=== PATIENT | male | born 1945 | race Caucasian/White ===

== ENCOUNTER → 2016-11-13 | Outpatient (CLI) | payer BC ==
[~2016-11-13] MED LIST: ASPEC81 PO; ASPI325T39 PO; CHLO4TAB PO; MAGN400T6 PO; METO50TA16 PO; MULT-190 PO; MULT-506 PO; RIVA1TAB4 PO
== END | disposition home or self-care (01) ==
LOC: C.PATHSPEC 17:34
PROVIDERS: ATTEND Internal Medicine
DX: D18.01 Hemangioma of skin and subcutaneous tissue (principal)

== ENCOUNTER → 2016-11-30 | Outpatient (CLI) | payer BC ==
[2016-11-30 11:13] LABS: ALT/SGPT 37 U/L (12-78); AST/SGOT 23 U/L (15-37); BLOOD UREA NITROGEN 22 mg/dl (7-18); BUN/CREATININE RATIO 18.4 (10-20); CALCIUM 9.1 mg/dl (8.5-10.1); CARBON DIOXIDE 31 mmol/L (21-32); CHLORIDE 106 mmol/L (98-107); CHOLESTEROL 199 mg/dl (0-200); GLUCOSE 97 mg/dl (70-99); POTASSIUM 4.3 mmol/L (3.5-5.1); SODIUM 144 mmol/L (136-145)
[2016-11-30 11:24] LABS: ALB/GLOB RATIO 0.9 (0.9-2); ALKALINE PHOSPHATASE 59 U/L (45-117); CHOLESTEROL/HDL RATIO 2.8; HDL CHOLESTEROL 71 mg/dl; PROSTATE SPECIFIC ANTIGEN 0.046 ng/ml (0.000-4.000); TRIGLYCERIDES 128 mg/dl (0-150); VERY LOW DENSITY LIPOPROT CALC 26 mg/dl
== END | disposition home or self-care (01) ==
LOC: C.LAB 10:20
PROVIDERS: ATTEND Internal Medicine
DX: Z00.01 Encounter for general adult medical examination with abnormal findings (principal); C61 Malignant neoplasm of prostate; E78.5 Hyperlipidemia, unspecified

== ENCOUNTER → 2016-12-25 | Outpatient (CLI) | payer BC ==
--- NOTE | 2016-12-25 11:31 | DIAGNOSTIC IMAGING REPORT ---
CT SCAN OF THE CHEST WITHOUT IV CONTRAST CLINICAL HISTORY: Lung cancer follow-up. COMPARISON STUDY: Chest CT scans dated 06/25/2016, 11/27/2015, and 05/21/2008 . PET/CT dated 12/05/2015. TECHNIQUE: CT scan of the thorax was performed from the thoracic inlet to the upper abdomen. Images are reviewed in the axial, sagittal, and coronal planes. IV contrast was not administered for this examination. CT DOSE: 295.89 mGycm FINDINGS: Thyroid: Imaged portions of the thyroid gland are normal in size and attenuation. Thoracic aorta: There is advanced atherosclerotic calcification of the thoracic aorta, which is normal in caliber and demonstrates standard 3-vessel arch anatomy. A left subclavian central venous infusion port is in place. Heart: The heart is normal in size and without pericardial effusion. There is diminished attenuation of the cardiac blood pool as compared to the myocardium suggesting anemia. The coronary arteries and aortic valve leaflets are densely calcified. The pulmonary trunk is normal in caliber. Lungs and pleural spaces: There are postoperative changes and volume loss consistent with a history of right upper lobe resection. Right apical scarring is observed. Emphysema is noted. There is no airspace consolidation typical for pneumonia or pleural effusion. No concerning pulmonary lesion is identified. Numerous calcified granulomas are observed. The trachea and central airways appear clear. Mediastinum: There are scattered subcentimeter mediastinal lymph nodes. These are not pathologically enlarged by size criteria. Brigid: Not well assessed without IV contrast. Axillae: There is no axillary lymphadenopathy. Upper abdomen: A 2.0 cm cyst is again seen in the upper pole the right kidney. The partially visualized kidneys demonstrate cortical atrophy. Cholecystectomy clips are observed. There is advanced atherosclerotic calcification of the imaged abdominal aorta. No adrenal lesion is identified. Diverticula are noted in the partially imaged left colon. Skeletal structures: The skeletal structures are osteopenic. Mild degenerative change and scoliosis are noted in the thoracic spine. No lytic or blastic bony lesions are seen. IMPRESSION: 1. There is no evidence of recurrent or metastatic disease in the thorax, and there has been no significant change from 06/25/2016. 2. Emphysema and postoperative changes consistent with a history of right upper lobectomy as above. 3. There is no airspace consolidation or pleural effusion. 4. Additional findings as above. Electronically signed by: Dustin Ward M.D. 12/25/2016 11:30 AM Dictated Date/Time: 12/25/2016 11:23 AM
== END | disposition home or self-care (01) ==
LOC: C.CTS 11:08
PROVIDERS: ATTEND Surgery
DX: C34.90 Malignant neoplasm of unspecified part of unspecified bronchus or lung (principal)

== ENCOUNTER 2017-01-01 00:06 | Emergency (ER) | payer BC ==
[~2017-01-01] VITALS: Ht 174 cm; Wt 68.3 kg
[~2017-01-01 00:06] MED LIST changes: -ASPI325T39 PO
[2017-01-01 00:09] VITALS: TEMP 36.3; Ht 174 cm; Wt 68.3 kg
[2017-01-01 00:20] VITALS: O2SAT 96
[2017-01-01] MEDS ORDERED: SODIUM CHLORIDE 0.9% 1000ML 1,000 ML IV STA (00:37)
--- NOTE | 2017-01-01 00:46 | EMERGENCY ROOM VISIT NOTE ---
History Report prepared by Siva: Juana Suarez Under the Supervision of: Dr. Mona Wooten M.D. First contact with patient: 00:15 Chief Complaint: RAPID HEART RATE Stated Complaint: RAPID HEART BEAT,SHAKINESS,ABD PAINS RECENTLY History of Present Illness The patient is a 71 year old male who presents to the Emergency Room with complaints of heart palpitations occurring about 45 minutes ago. The patient has a history of A-Fib occurring after right lung lobectomy. He denies any other episodes of A-Fib. He denies any changes in difficulty breathing in the past few weeks. Tonight, the patient did some of his exercises as normal without any issues. 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 His heart rate was in the 90s. He also started having some shakiness. Initially, he did not think that he had irregular rhythm but then he started having some heart palpitations with a sensation of his "heart skipping a beat". As per , the patient has been having intermittent lower abdominal pain for the past few weeks. He describes it as a combination of indigestion and increased gassiness. He has been taking TUMS with some relief. His PCP placed him on Prilosec which he has been intermittently weaning himself off of. He started taking Prilosec again about 3 days ago with relief. He has a history of multiple inguinal hernia repair. The patient also reports that he has been having increased lower extremity cramping pain. He currently denies any pain. He denies chest pain, nausea, vomiting, urinary symptoms, or any other complaints. Source of History: patient Onset: about 45 minutes ago Position: chest Symptom Intensity: No pain currently Quality: other (heart palpitations) Associated Symptoms: + abdominal pain, No chest pain, No nausea, No urinary symptoms, No vomiting Review of Systems See HPI for pertinent positives & negatives. A total of 10 systems reviewed and were otherwise negative. Past Medical & Surgical Medical Problems: (1) Gallbladder calculus (2) Lung cancer (3) Prostate cancer Surgical Problems: (1) H/O inguinal hernia repair Family History Patient reports no known family medical history. Social History Smoking Status: Former Smoker Marital Status: Occupation Status: retired Current/Historical Medications Scheduled Aspirin (Aspirin Ec), 162.5 MG PO HS Chlorpheniramine Maleate (Chlor-Trimeton), 4 MG PO HS Multivitamin (Multivitamin), 1 TAB PO QAM Ocuvite Preservision (Ocuvite Preservision), 1 TAB PO QAM Allergies Coded Allergies: Penicillins (Verified Allergy, Mild, RASH, 01/01/17) Physical Exam Vital Signs Date Time Temp Pulse Resp B/P Pulse Ox O2 Delivery O2 Flow Rate FiO2 01/01/17 04:03 86 16 137/84 96 01/01/17 03:30 96 18 142/80 95 Room Air 01/01/17 02:38 83 16 148/85 97 Room Air 01/01/17 02:04 82 18 130/89 100 Room Air 01/01/17 01:28 80 18 126/82 95 Room Air 01/01/17 00:26 84 18 162/92 96 Room Air 01/01/17 00:25 88 01/01/17 00:24 Room Air 01/01/17 00:20 85 18 169/92 96 Room Air 01/01/17 00:20 96 Room Air 01/01/17 00:09 36.3 90 20 164/100 96 Room Air Physical Exam Vital signs reviewed. General: Well-appearing, in no significant distress. HEENT: No scleral icterus, PERRLA, neck supple. Atraumatic. Cardiovascular: Regular rate and rhythm, no extra sounds. Pulmonary: Clear to auscultation bilaterally, normal work of breathing. Abdomen: Soft, nontender, nondistended, positive bowel sounds. Musculoskeletal: Atraumatic, no peripheral edema. Neurologic: Patient awake alert and oriented x 3, full strength in all 4 extremities. Cranial nerves 2 through 12 grossly intact. Skin: Warm, dry, no rash Medical Decision & Procedures ER Provider Diagnostic Interpretation: X-ray results as stated below per interpretation by me: CHEST X-RAY Mediastinal fullness with a perihilar fullness bilaterally, left sided port seen , no focal lung consolidation, no failure. CT results as stated below per my review and radiologist interpretation: CT CHEST WITH CONTRAST Comparison 12/25/2016 No evidence of filling defect to suggest pulmonary embolism. Thoracic aorta within limits. Coronary calcifications. No pericardial or pleural effusion. Status post cholecystectomy Partially imaged right renal cyst Pulmonary emphysema without focal consolidation Left port Radiologist: Carlitos Grubbs Laboratory Results 01/01/17 00:55 Red Blood Count 4.29, Mean Corpuscular Volume 90.2, Mean Corpuscular Hemoglobin 31.0, Mean Corpuscular Hemoglobin Concent 34.4, Mean Platelet Volume 9.0, Neutrophils (%) (Auto) 69.2, Lymphocytes (%) (Auto) 20.8, Monocytes (%) (Auto) 7.6, Eosinophils (%) (Auto) 2.2, Basophils (%) (Auto) 0.1, Neutrophils # (Auto) 6.70, Lymphocytes # (Auto) 2.01, Monocytes # (Auto) 0.74, Eosinophils # (Auto) 0.21, Basophils # (Auto) 0.01 01/01/17 00:55 Test 01/01/17 00:55 01/01/17 01:00 White Blood Count 9.68 K/uL (4.8-10.8) Red Blood Count 4.29 M/uL (4.7-6.1) Hemoglobin 13.3 g/dL (14.0-18.0) Hematocrit 38.7 % (42-52) Mean Corpuscular Volume 90.2 fL (80-100) Mean Corpuscular Hemoglobin 31.0 pg (25-34) Mean Corpuscular Hemoglobin Concent 34.4 g/dl (32-36) Platelet Count 177 K/uL (130-400) Mean Platelet Volume 9.0 fL (7.4-10.4) Neutrophils (%) (Auto) 69.2 % Lymphocytes (%) (Auto) 20.8 % Monocytes (%) (Auto) 7.6 % Eosinophils (%) (Auto) 2.2 % Basophils (%) (Auto) 0.1 % Neutrophils # (Auto) 6.70 K/uL (1.4-6.5) Lymphocytes # (Auto) 2.01 K/uL (1.2-3.4) Monocytes # (Auto) 0.74 K/uL (0.11-0.59) Eosinophils # (Auto) 0.21 K/uL (0-0.5) Basophils # (Auto) 0.01 K/uL (0-0.2) RDW Standard Deviation 44.1 fL (36.4-46.3) RDW Coefficient of Variation 13.4 % (11.5-14.5) Immature Granulocyte % (Auto) 0.1 % Immature Granulocyte # (Auto) 0.01 K/uL (0.00-0.02) Prothrombin Time 10.1 SECONDS (9.0-12.0) Prothromb Time International Ratio 0.9 (0.9-1.1) Activated Partial Thromboplast Time 26.6 SECONDS (21.0-31.0) Partial Thromboplastin Ratio 1.0 Anion Gap 7.0 mmol/L (3-11) Est Creatinine Clear Calc Drug Dose 49.6 ml/min Estimated GFR () 63.2 Estimated GFR (Non- 54.5 BUN/Creatinine Ratio 17.0 (10-20) Calcium Level 8.4 mg/dl (8.5-10.1) Magnesium Level 2.0 mg/dl (1.8-2.4) Total Bilirubin 0.2 mg/dl (0.2-1) Direct Bilirubin < 0.1 mg/dl (0-0.2) Aspartate Amino Transf (AST/SGOT) 16 U/L (15-37) Alanine Aminotransferase (ALT/SGPT) 30 U/L (12-78) Alkaline Phosphatase 59 U/L (45-117) Total Creatine Kinase 152 U/L (39-308) Creatine Kinase MB 3.1 ng/ml (0.5-3.6) Creatine Kinase MB Ratio 2.0 (0-3.0) Total Protein 6.8 gm/dl (6.4-8.2) Albumin 3.5 gm/dl (3.4-5.0) Bedside D-Dimer > 450 ng/mlFEU (0-450) Bedside Troponin I 0.000 ng/ml (0-0.045) Laboratory results per my review. Medications Administered Medications (Trade) Dose Ordered Sig/Johnny Route Start Time Stop Time Status Last Admin Dose Admin Sodium Chloride (Nss 1000ml) 1,000 ml @ 125 mls/hr Q8H STAT IV 01/01/17 00:37 01/01/17 04:14 DC 01/01/17 00:58 125 MLS/HR Heparin Sodium (Porcine) (Heparin 100 Unit/ml 5ml Flush) 5 ml STK-MED ONCE .ROUTE 01/01/17 03:43 01/01/17 03:44 DC 01/01/17 03:43 5 ML ECG Indication: palpitations Rate (beats per minute): 83 Rhythm: normal sinus Findings: no acute ischemic change, no ectopy ED Course 0015: Past medical records reviewed. The patient was evaluated in room A11B. A complete history and physical examination was performed. 0037: Sodium Chloride 1000 ml @ 125 mls/hr IV 0355: Upon reevaluation, the patient appeared to have improvement of his symptoms. I discussed findings with him. He verbalized agreement of the treatment plan. He was discharged home. Medical Decision Differential diagnosis: Etiologies such as premature contractions, electrolyte abnormality, cardiac dysrhythmia, thyroid dysfunction, pulmonary embolism, infection, gastrointestinal, as well as others were entertained. This patient was evaluated and appeared to be in no significant distress. IV access was obtained and laboratory work was drawn. The patient was placed on the corporate secretary and found to be in a normal sinus rhythm. EKG reveals no evidence of acute ischemia. Laboratory work is unrevealing. Patient's d-dimer is positive. CT scan of the chest was performed and is negative for pulmonary embolus. There are chronic changes noted as above. I suspect the patient either had a brief episode of atrial fibrillation or PVC /PAC. The patient was informed of the findings. He was advised to follow-up with his primary care physician this week. He will return to the ER for worsening of symptoms or any medical concerns. Impression Primary Impression: Heart palpitations Scribe Attestation The scribe's documentation has been prepared under my direction and personally reviewed by me in its entirety. I confirm that the note above accurately reflects all work, treatment, procedures, and medical decision making performed by me. Departure Information Dispostion Home / Self-Care Referrals Mushtaq Navarrete M.D. (PCP) Forms HOME CARE DOCUMENTATION FORM, IMPORTANT VISIT INFORMATION, WORK / SCHOOL INSTRUCTIONS Patient Instructions My [facility] Additional Instructions Diagnosis: Palpitations Please follow-up with your primary care physician this week for reevaluation. Continue medications as prescribed. Return to the emergency department for worsening of symptoms or any medical concerns.
[2017-01-01 01:10] LABS: BASO % 0.1 %; BASO ABS # 0.01 K/uL (0-0.2); COMPLETE YES; EOS % 2.2 %; HEMATOCRIT 38.7 % (42-52); IG% 0.1 %; LYMPH % 20.8 %; LYMPH ABS # 2.01 K/uL (1.2-3.4); MEAN CELL VOLUME 90.2 fL (80-100); MEAN CORPUSCULAR HGB CONC 34.4 g/dl (32-36); MONO % 7.6 %; NEUT % 69.2 %; PLATELET COUNT 177 K/uL (130-400); RED BLOOD COUNT 4.29 M/uL (4.7-6.1); WHITE BLOOD COUNT 9.68 K/uL (4.8-10.8)
[2017-01-01 01:18] LABS: INR 0.9 (0.9-1.1); PROTHROMBIN TIME (PATIENT) 10.1 SECONDS (9.0-12.0)
[2017-01-01] MEDS ORDERED: ASPI325T39 PO (01:29)
[2017-01-01 01:35] LABS: ALT/SGPT 30 U/L (12-78); AST/SGOT 16 U/L (15-37); BLOOD UREA NITROGEN 22 mg/dl (7-18); CALCIUM 8.4 mg/dl (8.5-10.1); CARBON DIOXIDE 29 mmol/L (21-32); CHLORIDE 107 mmol/L (98-107); GLUCOSE 89 mg/dl (70-99); POTASSIUM 3.9 mmol/L (3.5-5.1); SODIUM 143 mmol/L (136-145)
[2017-01-01 01:40] LABS: ALKALINE PHOSPHATASE 59 U/L (45-117)
[2017-01-01] MEDS ORDERED: OPTIRAY 320 IV PRN (02:15)
[2017-01-01 04:03] VITALS: BP 137/84; PULSE 86; O2SAT 96
--- NOTE | 2017-01-01 07:39 | DIAGNOSTIC IMAGING REPORT ---
CT ANGIOGRAM OF THE CHEST CLINICAL HISTORY: Dyspnea. Tachycardia. Lung cancer history. COMPARISON STUDY: Chest CT scans dated 12/25/2016 and 05/21/2008. TECHNIQUE: Following the IV administration of 74 cc of Optiray 320, CT angiogram of the chest was performed from the upper abdomen to the thoracic inlet utilizing the pulmonary embolus protocol. Images are reviewed in the axial, sagittal, and coronal planes. 3-D MIPS images are created and assessed. IV contrast was administered without complication. CT DOSE: 251.17 mGy.cm FINDINGS: Thyroid: Imaged portions of the thyroid gland are normal in size and attenuation. Thoracic aorta: There is atherosclerotic calcification of the thoracic aorta, which is normal in caliber and demonstrates standard 3-vessel arch anatomy. No dissection is seen. A left subclavian central venous infusion port is in place. Pulmonary vasculature: The pulmonary trunk is normal in caliber. There are no filling defects identified in main, lobar, or segmental pulmonary branches to suggest pulmonary embolus. Heart: The heart is normal in size and configuration, and without pericardial effusion. Coronary arteries are densely calcified. Lungs and pleural spaces: Again seen are postoperative changes and volume loss consistent with a history of right upper lobe resection. Right apical scarring is noted. Advanced emphysema is observed. There is no airspace consolidation typical for pneumonia or pleural effusion. No concerning pulmonary lesion is identified. Numerous calcified granulomas are observed. The trachea and central airways appear clear. Mediastinum: There are scattered subcentimeter mediastinal lymph nodes. These are not pathologically enlarged by size criteria. Brigid: Clear. Axillae: There is no axillary lymphadenopathy. Upper abdomen: Cholecystectomy clips are noted. A 2.0 cm cyst is again seen in the upper pole of the right kidney. There is advanced atherosclerotic calcification of the partially imaged abdominal aorta. Skeletal structures: The skeletal structures are osteopenic. Mild degenerative change and scoliosis are identified in the thoracic spine. No lytic or blastic bony lesions are seen. IMPRESSION: 1. There is no evidence of pulmonary embolus in the main, lobar, or segmental pulmonary arteries. 2. Advanced emphysema and postoperative change from right upper lobe resection. 3. There is no airspace consolidation or pleural effusion. 4. Additional findings as above. Electronically signed by: Dustin Ward M.D. 01/01/2017 7:37 AM Dictated Date/Time: 01/01/2017 7:31 AM
--- NOTE | 2017-01-01 07:57 | DIAGNOSTIC IMAGING REPORT ---
SINGLE VIEW CHEST CLINICAL HISTORY: Tachycardia. Lung cancer. FINDINGS: An AP, portable, upright chest radiograph is compared to study dated 02/01/2016 and correlated with chest CT dated 12/25/2016. The examination is degraded by portable technique and patient rotation. A left subclavian central venous infusion port is in place. The heart is top normal in size and there is atherosclerotic calcification of the thoracic aorta. Enlargement of the central pulmonary arteries suggests pulmonary artery hypertension. Emphysema and chronic interstitial thickening are somewhat a previous. Volume loss in the right upper lung is consistent with history of pulmonary resection. There is minimal left basilar atelectasis. No airspace consolidation or pleural effusion is identified. No pneumothorax is seen. The bony thorax is grossly intact. IMPRESSION: 1. No acute cardiopulmonary abnormality. 2. Emphysema and postoperative change from right upper lobe resection. Electronically signed by: Dustin Ward M.D. 01/01/2017 7:55 AM Dictated Date/Time: 01/01/2017 7:54 AM
== END 2017-01-01 04:04 | disposition home or self-care (01) ==
LOC: C.EDB 00:07 → C.EDA 04:04
DX: R00.2 Palpitations (principal); Z87.19 Personal history of other diseases of the digestive system; Z85.118 Personal history of other malignant neoplasm of bronchus and lung; Z85.46 Personal history of malignant neoplasm of prostate; Z98.890 Other specified postprocedural states; Z79.82 Long term (current) use of aspirin; Z79.899 Other long term (current) drug therapy; Z88.0 Allergy status to penicillin

== ENCOUNTER → 2017-06-23 | Outpatient (CLI) | payer BC ==
[~2017-06-23] MED LIST changes: -ASPEC81 PO; +ASPI325T39 PO; -MAGN400T6 PO; -METO50TA16 PO; -RIVA1TAB4 PO
--- NOTE | 2017-06-23 11:41 | DIAGNOSTIC IMAGING REPORT ---
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 COMPARISON STUDY: Chest CT January 01, 2017 and PET/CT December 05, 2015. CT DOSE: 411.90 mGycm TECHNIQUE: Axial images of the chest were obtained without IV contrast. Images were reviewed in the axial, sagittal, and coronal planes. IV contrast was not administered for this examination. A dose lowering technique was utilized adhering to the principles of ALARA. FINDINGS: No enlarged axillary, mediastinal or hilar lymph nodes are present. The size of the heart is normal. There is no pericardial effusion. Extensive coronary artery calcification is present. No pneumothorax or pleural effusion is present. Central airways are patent. There is moderate emphysema. There are stable postoperative findings consistent with a right upper lobectomy. No suspicious osseous lesions are shown within the bony thorax. Gallbladder is surgically absent. Visualized portions of the adrenal glands are normal. No upper abdominal abnormalities identified on this unenhanced exam. A left-sided Schmne-w-Yget is in place. IMPRESSION: 1. No evidence of recurrent malignancy within the chest status post right upper lobectomy. 2. Moderate emphysema. Electronically signed by: José Miguel Keller M.D. 06/23/2017 11:40 AM Dictated Date/Time: 06/23/2017 11:30 AM
== END | disposition home or self-care (01) ==
LOC: C.CTS 11:13
PROVIDERS: ATTEND Internal Medicine Hematology
DX: C34.11 Malignant neoplasm of upper lobe, right bronchus or lung (principal)

== ENCOUNTER → 2017-07-12 | Outpatient (CLI) | payer BC | END | disposition home or self-care (01) | LOC: C.LABSPEC 16:00 | PROVIDERS: ATTEND Internal Medicine | DX: Z12.11 Encounter for screening for malignant neoplasm of colon (principal) ==

== ENCOUNTER → 2017-12-09 | Outpatient (CLI) | payer BC | END | disposition home or self-care (01) | LOC: C.LABSPEC 17:36 | PROVIDERS: ATTEND Internal Medicine | DX: L02.01 Cutaneous abscess of face (principal) ==

== ENCOUNTER → 2017-12-22 | Outpatient (CLI) | payer BC ==
--- NOTE | 2017-12-22 14:15 | DIAGNOSTIC IMAGING REPORT ---
CT OF THE CHEST WITHOUT IV CONTRAST CLINICAL HISTORY: Malignant neoplasm of right upper lobe. COMPARISON STUDY: Chest CT June 23, 2017 and PET/CT December 05, 2015. CT DOSE: 251.93 mGycm TECHNIQUE: Axial images of the chest were obtained without IV contrast. Images were reviewed in the axial, sagittal, and coronal planes. IV contrast was not administered for this examination. A dose lowering technique was utilized adhering to the principles of ALARA. FINDINGS: A left subclavian Rungtd-s-Wkxw is in place. No enlarged axillary, mediastinal or hilar lymph nodes are present. The size the heart is normal. There is extensive coronary artery calcification. There is no pericardial effusion. The patient is status post right upper lobectomy. The postoperative appearance is unchanged. There are multiple calcified pulmonary nodules which are unchanged. There are no suspicious pulmonary nodules. There is no consolidation to suggest pneumonia. Moderate emphysema is noted. No suspicious osseous lesions are present. Pneumobilia is noted within visualized portions of the upper abdomen which is unchanged. A suspected right renal cyst is partially imaged on this exam. IMPRESSION: 1. No evidence for recurrent malignancy status post right upper lobectomy. 2. Moderate emphysema. 3. Severe coronary artery disease. Electronically signed by: José Miguel Keller M.D. 12/22/2017 2:14 PM Dictated Date/Time: 12/22/2017 2:05 PM
== END | disposition home or self-care (01) ==
LOC: C.CTS 13:48
PROVIDERS: ATTEND Internal Medicine Hematology
DX: C34.11 Malignant neoplasm of upper lobe, right bronchus or lung (principal); J43.9 Emphysema, unspecified; Z90.2 Acquired absence of lung [part of]; I25.10 Atherosclerotic heart disease of native coronary artery without angina pectoris

== ENCOUNTER → 2018-02-02 | Outpatient (CLI) | payer BC ==
--- NOTE | 2018-02-02 15:17 | DIAGNOSTIC IMAGING REPORT ---
VIDEO SWALLOW STUDY CLINICAL HISTORY: Dysphagia. COMPARISON STUDY: No priors. Fluoroscopy time: 2.4 minutes. FINDINGS: Fluoroscopic guidance is provided to the department of speech pathology in performing a video swallow study. The patient consumed barium-impregnated cracker with paste, pudding, nectar thick liquid, and thin barium where the swallowing mechanism was observed in real-time. No penetration or aspiration was seen with any of the sampled textures. The patient swallowed a barium tablet with no difficulty. Mild vallecular retention was noted on the more solid textures. IMPRESSION: 1. No penetration or aspiration was seen with any of the sampled textures. 2. See dedicated speech pathology report for detailed findings and recommendations. Dictated: 02/02/2018 2:53 PM Transcribed: 02/02/2018 3:17 PM [email or web address] Electronically signed by: Dustin Ward M.D. 02/03/2018 4:08 PM Dictated Date/Time: 02/02/2018 2:53 PM
--- NOTE | 2018-02-03 10:23 | SWALLOWING EVALUATION ---
HISTORY: This 72 year old man was referred for a video swallow study at [facility] in order to rule out aspiration and identify the safest consistencies for optimal oral intake. The patient is reporting pill dysphagia and food getting stuck in his throat at times. He denies any coughing or choking with food or liquid. PMH is significant for right lung cancer s/p right upper lobectomy, s/p chemotherapy, A-fib, and cholecystitis. Current diet is regular. PROCEDURE: The patient was seen in the Radiology Department of [facility] for the VFSS. Cursory examination of the oral cavity revealed the patient to have an upper partial that fits well and lower dentition in good condition. Movement of the articulators was wnl. The patient was seated upright on a stool and was viewed in both the Anterior-Posterior (A-P) and Lateral planes. Volitional phonation exercises completed in the A-P plane revealed bilateral vocal fold movement. Vocal intensity was wnl. Patient reports episodes of a raspy vocal quality. In the lateral plane, the patient was given the following boluses: 1 tsp. thin liquid barium x 2, single swallow thin liquid barium self-presented from a cup, sequential swallows of thin liquid barium self-presented from a straw, 1 tsp. nectar-thick liquid barium, single swallow nectar-thick liquid barium self-presented from a cup, 1 tsp. barium pudding, and 1 club cracker coated in barium pudding. The patient was then repositioned into the A-P plane and given the following boluses: 1 tsp. nectar thick barium, 1 tsp. barium pudding, and 1 barium tablet. The patient tended to lean back and to the right for the study and required frequent repositioning. RESULTS: Oral Stage: Lip closure was adequate. The patient was able to maintain a cohesive liquid bolus in the oral cavity during the liquid bolus hold task. Mastication was timely and efficient. Lingual motion for bolus transport was slow. There was retention lining the tongue and palate after the initial swallow. The initiation of the pharyngeal swallow was delayed occurred when the bolus head reached the pyriforms. Pharyngeal Stage: Soft palate elevation was complete. Laryngeal elevation revealed complete superior movement of the thyroid cartilage and complete approximation of the arytenoids to the epiglottic base. Anterior hyoid excursion was partially reduced and epiglottic deflection was complete. Laryngeal vestibular closure was complete. The pharyngeal stripping wave was present and complete. Pharyngeal contraction was complete. There was partial distention and duration of the opening to the pharyngoesophageal segment (PES). Tongue base retraction was partially reduced with a trace column of contrast located between the tongue base and pharyngeal wall during the swallow. There was retention located in the valleculae and pyriforms after the swallow. There was no evidence of laryngeal penetration or aspiration during this study. A majority of the vallecular and pyriform retention cleared with a second "dry" swallow or use of a liquid wash. No difficulty swallowing a barium tablet. Esophageal stage: There was complete esophageal clearance. Noted cervical osteophytes located in the area of the upper esophagus that only mildly impacted bolus flow through the PES. SUMMARY/RECOMMENDATIONS: This patient presents with mild hebert-pharyngeal dysphagia. The following is recommended: 1. Regular diet and thin liquids. 2. Aspiration precautions. Straws OK. Fully upright for meals and for 30 [address] medications in a carrier such as applesauce or pudding to assist with swallowing. Follow this with a liquid wash. A summary of the results and recommendations was discussed with the patient immediately following the study with verbal understanding. Thank you for referral of this patient. Please contact me at if any additional information is needed.
== END | disposition home or self-care (01) ==
LOC: C.RAD 13:26
PROVIDERS: ATTEND Surgery
DX: R13.10 Dysphagia, unspecified (principal)

== ENCOUNTER 2022-07-30 15:28 | Observation (INO) ==
[2022-07-30 16:07] LABS: Hematocrit (blood only) 42.2 % (40.1-51.0); Hemoglobin 14.3 g/dl (14.0-18.0); Mean Corpuscular Hemoglobin 30.9 pg (25.0-34.0); Mean Corpuscular Hgb Conc 33.9 g/dL (32.0-36.0); Mean Corpuscular Volume 91.1 fL (80.0-100.0); Mean Platelet Volume 9.4 fL (9.4-12.4); Platelet Count 202 K/uL (130-400); RDW Coefficient of Variation 12.6 % (11.5-14.5); RDW Standard Deviation 41.7 fL (36.4-46.3); Red Blood Count 4.63 M/uL (4.63-6.08); White Blood Count 7.99 K/ul (4.8-10.8)
[2022-07-30 16:23] LABS: Partial Thromboplastin Time 26.2 Seconds (21.0-31.0); Prothrombin Time 10.9 Seconds (9.0-12.0)
[2022-07-30 16:30] LABS: Albumin Globulin Ratio 1.3 (0.9-2); Albumin Level 3.9 gm/dl (3.4-5.0); BUN Creatinine Ratio 20.5 (10-20); Bilirubin,Total 0.5 mg/dl (0.2-1.0); Calcium 9.4 mg/dl (8.5-10.1); Creatinine Clr Calc Pharmacy 43.6 ml/min; Est GFR (African American) 59.5 ml/min; Est GFR (Non-African American) 51.3 ml/min; Magnesium 1.8 mg/dl (1.7-2.4); Potassium 4.8 mmol/L (3.5-5.1); Total Protein 6.9 gm/dl (6.0-8.3)
[2022-07-30 16:33] LABS: Troponin I High Sensitivity 9.2 pg/ml (0-20)
--- NOTE | 2022-07-30 17:01 | Electrocardiogram Report ---
Test Reason : Blood Pressure : / mmHG Vent. Rate : 084 BPM Atrial Rate : 084 BPM P-R Int : 152 ms QRS Dur : 122 ms QT Int : 382 ms P-R-T Axes : 062 -02 049 degrees QTc Int : 451 ms Poor data quality, interpretation may be adversely affected Normal sinus rhythm Right bundle branch block Abnormal ECG When compared with ECG of 01-JAN-2017 00:20, Right bundle branch block is now Present Confirmed by Cory Styles ([id number]) on 07/30/2022 5:01:33 PM Referred By: REFERRED SELF Confirmed By:Cory Styles
[2022-07-30] MEDS ORDERED: OPTIRAY 320 500ml IV ONE (17:04)
--- NOTE | 2022-07-30 17:20 | CT Scan Report ---
CT angio head w con, CT angio neck with con CLINICAL HISTORY: Stroke Like Symptoms TECHNIQUE: CT angiography of the head and neck was performed following intravenous administration of iodinated contrast. Coronal and sagittal MIPS were obtained from the axial data set and were submitte d for review. Automated dose lowering techniques and/or adjustment according to patient size were ut ilized for this examination. All measurements were calculated based on NASCET criteria. CT DOSE: 631.23 mGy.cm Comparison: None available at the time of this dictation. FINDINGS: Biapical emphysema is seen. CTA Neck: A 3 vessel aortic arch is shown. Atherosclerotic plaque is present in the aortic arch and at the origin of the great vessels. The common carotid, external carotid, cervical segments of the i nternal carotid arteries, and the cervical segments of the vertebral arteries are patent without hemo dynamically significant stenosis. The left vertebral artery is dominant. CTA Head: The anterior and posterior cerebral circulations are patent. No hemodynamically significan t stenosis, aneurysm, dissection, or arteriovenous malformation is shown. IMPRESSION: 1. No occlusion, hemodynamically significant stenosis, or dissection in the major cervical arteries. 2. No occlusion, hemodynamically significant stenosis, aneurysm, dissection, or arteriovenous malfor mation in the major intracranial arteries. Assessment of stenosis of the internal carotid arteries is based on NASCET criteria. ACT 112: Negative or not required by law. Electronically signed by: Boone Metcalf M.D. 07/30/2022 5:18 PM
--- NOTE | 2022-07-30 17:48 | Emergency Department Note ---
History of Present Illness General Chief complaint: Stroke/CVA Symptoms Stated complaint: GARBLED SPEECH Time Seen by Provider: 07/30/22 15:51 History of Present Illness 77-year-old male presents to the ED with a chief complaint of TIA symptoms. The patient had an episode at around 240 2:55 PM where he had garbled speech for about 2 minutes. He states that he was able to read and comprehend but when he tried to speak, nonsense him out. He states this was rather frustrating but fortunately resolved. The patient also states that he has some prism like visual changes during the same time. He does have history of angioplasty of his legs with stents in 2019. 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 He currently only takes atorvastatin. He had been on lisinopril previously but this has been removed because his blood pressures were okay. He denies any other complaints. He did not have any additional associated focal deficits. Remote history of A. fib after his surgery in 2015. Home Medications Medication Instructions Recorded Confirmed Type aspirin 325 mg tablet,delayed 162.5 mg PO HS 08/17/18 02/10/20 History release chlorpheniramine maleate 4 mg 4 mg PO HS 08/17/18 02/10/20 History tablet multivitamin 1 tab PO DAILY 08/17/18 02/10/20 History omeprazole 20 mg tablet,delayed 20 mg PO UD PRN Acid Reflux 08/17/18 02/09/20 History release vit C 150 mg-vit E 30 unit-lutein 1 cap PO QAM 08/17/18 02/10/20 History 5 [id number]-[id number]-mirql 3 150 mg capsule (Ocuvite) atorvastatin 20 mg tablet 20 mg PO DAILY 02/09/20 02/10/20 History lisinopril 10 mg tablet 10 mg PO BID 02/09/20 02/10/20 History clopidogrel 75 mg tablet (Plavix) 75 mg PO DAILY #30 tabs 02/10/20 Rx Allergies Allergy/AdvReac Type Severity Reaction Status Date / Time Penicillins Allergy Intermediate RASH Verified 02/10/20 05:43 Past Med/Surg History Medical History (Updated 07/30/22 @ 17:48 by Maurilio Irene DO) Acid reflux High blood pressure ? NOT DX/HIGH READING AT ED VISIT ([facility]) FOR NOSE BLEED History of atrial fibrillation 2ND NIGHT POST OP,LUNG SURGERY/AFIB X1 EPISODE (NONE KNOWN SINCE) History of brachytherapy History of prostate cancer History of TMJ syndrome OCC CLICK OR POP NOW/NEVER LOCKED Lung cancer 2016/SURGERY/CHEMO Nasal bleeding AUG 17 LAST EPISODE/REASON FOR UPCOMING PROCEDURE Surgical History History of bilateral cataract extraction History of endoscopy History of hernia repair History of hernia surgery LAP X2 History of intestinal surgery HX BOWEL PERFORATION History of laparoscopic cholecystectomy History of lobectomy of lung UPPER RIGHT History of vitrectomy R Family History Other FHx: heart disease Family history of diabetes mellitus Social History Smoking Status: Former smoker Second Hand Exposure: No; Hx Alcohol Use: No Hx Substance Use: No Preferred Language: Liberian Communication Ability: Effective Transfer Knitter Required: No Beliefs That Will Affect Care: None Current Living Situation: Spouse Feels Safe at Home: Yes Assistive Devices: Denture - Upper and Glasses Review of Systems A total of 10 systems reviewed and were otherwise negative Physical Exam Vital Signs Vital Signs - 24 hr 07/30/22 15:35 07/30/22 16:13 07/30/22 17:02 Temperature 36.4 C L Temperature Source Temporal Artery Scan Pulse Rate 90 Pulse Rate [Right Finger] 83 72 Respiratory Rate 18 20 16 Respiratory Depth Normal Blood Pressure 193/105 H Blood Pressure [Right Arm] 189/108 H 169/91 H Blood Pressure Mean 134 Blood Pressure Mean [Right Arm] 135 117 Pulse Oximetry 99 96 95 Oxygen Delivery Method Room Air Sepsis Recent Fever Within 48 Hours No Sepsis New/Unexplained Change in Mental Status No Sepsis Action Taken by Nursing No Action Required 07/30/22 17:39 Temperature Temperature Source Pulse Rate Pulse Rate [Right Finger] Respiratory Rate Respiratory Depth Blood Pressure Blood Pressure [Right Arm] 184/99 H Blood Pressure Mean Blood Pressure Mean [Right Arm] 127 Pulse Oximetry Oxygen Delivery Method Sepsis Recent Fever Within 48 Hours Sepsis New/Unexplained Change in Mental Status Sepsis Action Taken by Nursing CONSTITUTIONAL/VITAL SIGNS: Reviewed / noted above. GENERAL: Non-toxic in appearance. INTEGUMENTARY: Warm, dry, and [place]. HEAD: Normocephalic. EYES: without scleral icterus or trauma. ENT/OROPHARYNX: clear and moist. LYMPHADENOPATHY/NECK: Is supple without lymphadenopathy or meningismus. RESPIRATORY: Clear to auscultation bilaterally. No increased work of breathing. CARDIOVASCULAR: Regular rate and rhythm. GI/ABDOMEN: Soft and nontender. No organomegaly or pulsatile mass. EXTREMITIES: Warm and well perfused. BACK: No CVA tenderness. NEUROLOGICAL: Intact without focal deficits. Cranial nerves II through XII are intact. Awake alert and oriented. Speaks fluently. No pronator drift. Cerebellar testing is normal. Strength in the extremities is all normal PSYCHIATRIC: normal affect. MUSCULOSKELETAL: Normally developed with good muscle tone. TRIAGE NURSING DOCUMENTATION REVIEWED. Course Administered Medications Discontinued Medications Ioversol (Optiray 320 500ml) 103 ml IV ONCE ONE Stop: 07/30/22 17:05 Last Admin: 07/30/22 17:04 Dose: 103 ml Documented By: MAURA Medical Decision Making Differential Diagnosis Differential includes acute coronary syndrome, myocardial infarction, CVA, TIA, anemia, infection, pneumonia, UTI, pyelonephritis, poor nutrition, dehydration, electrolyte disturbance,hypoglycemia. Medical Records Attestation: I reviewed the patient's medical records. Home Medications Current Medication List: was personally reviewed by me Laboratory Data Attestation: I reviewed the patient's lab results. Result diagrams: 07/30/22 15:50 07/30/22 15:50 Lab Results 07/30/22 07/30/22 07/30/22 Range/Units 15:50 15:50 15:50 WBC 7.99 (4.8-10.8) K/ul RBC 4.63 (4.63-6.08) M/uL Hgb 14.3 (14.0-18.0) g/dl Hct 42.2 (40.1-51.0) % MCV 91.1 (80.0-100.0) fL MCH 30.9 (25.0-34.0) pg MCHC 33.9 (32.0-36.0) g/dL RDW Std Deviation 41.7 (36.4-46.3) fL RDW Coeff of Erika 12.6 (11.5-14.5) % Plt Count 202 (130-400) K/uL MPV 9.4 (9.4-12.4) fL PT 10.9 (9.0-12.0) Seconds INR 1.0 (0.9-1.1) APTT 26.2 (21.0-31.0) Seconds PTT Ratio 1.0 Sodium 140 (136-145) mmol/L Potassium 4.8 (3.5-5.1) mmol/L Chloride 106 (98-107) mmol/L Carbon Dioxide 30 (21-32) mmol/L Anion Gap 4 (3-11) BUN 27 H (6-23) mg/dl Creatinine 1.32 (0.6-1.4) mg/dl Est Cr Clr Drug Dosing 43.6 ml/min Est GFR ( Amer) 59.5 ml/min Est GFR (Non-Af Amer) 51.3 ml/min BUN/Creatinine Ratio 20.5 H (10-20) Glucose 163 H (70-99(Fasting)) mg/dl Calcium 9.4 (8.5-10.1) mg/dl Magnesium 1.8 (1.7-2.4) mg/dl Total Bilirubin 0.5 (0.2-1.0) mg/dl AST 23 (13-39) U/L ALT 25 (7-52) U/L Alkaline Phosphatase 71 (34-104) U/L Troponin I High Sens 9.2 (0-20) pg/ml Total Protein 6.9 (6.0-8.3) gm/dl Albumin 3.9 (3.4-5.0) gm/dl Globulin 3.0 (2.5-4.0) gm/dl Albumin/Globulin Ratio 1.3 (0.9-2) Imaging Data Radiologist's Impression: Head CTA 07/30/22 15:52 CT angio head w con, CT angio neck with con CLINICAL HISTORY: Stroke Like Symptoms TECHNIQUE: CT angiography of the head and neck was performed following intravenous administration of iodinated contrast. Coronal and sagittal MIPS were obtained from the axial data set and were submitted for review. Automated dose lowering techniques and/or adjustment according to patient size were utilized for this examination. All measurements were calculated based on NASCET criteria. CT DOSE: 631.23 mGy.cm Comparison: None available at the time of this dictation. FINDINGS: Biapical emphysema is seen. CTA Neck: A 3 vessel aortic arch is shown. Atherosclerotic plaque is present in the aortic arch and at the origin of the great vessels. The common carotid, external carotid, cervical segments of the internal carotid arteries, and the cervical segments of the vertebral arteries are patent without hemodynamically significant stenosis. The left vertebral artery is dominant. CTA Head: The anterior and posterior cerebral circulations are patent. No hemodynamically significant stenosis, aneurysm, dissection, or arteriovenous malformation is shown. IMPRESSION: 1. No occlusion, hemodynamically significant stenosis, or dissection in the major cervical arteries. 2. No occlusion, hemodynamically significant stenosis, aneurysm, dissection, or arteriovenous malformation in the major intracranial arteries. Assessment of stenosis of the internal carotid arteries is based on NASCET criteria. ACT 112: Negative or not required by law. Electronically signed by: Boone Metcalf M.D. 07/30/2022 5:18 PM Neck CTA 07/30/22 15:52 CT angio head w con, CT angio neck with con CLINICAL HISTORY: Stroke Like Symptoms TECHNIQUE: CT angiography of the head and neck was performed following intravenous administration of iodinated contrast. Coronal and sagittal MIPS were obtained from the axial data set and were submitted for review. Automated dose lowering techniques and/or adjustment according to patient size were utilized for this examination. All measurements were calculated based on NASCET criteria. CT DOSE: 631.23 mGy.cm Comparison: None available at the time of this dictation. FINDINGS: Biapical emphysema is seen. CTA Neck: A 3 vessel aortic arch is shown. Atherosclerotic plaque is present in the aortic arch and at the origin of the great vessels. The common carotid, external carotid, cervical segments of the internal carotid arteries, and the cervical segments of the vertebral arteries are patent without hemodynamically significant stenosis. The left vertebral artery is dominant. CTA Head: The anterior and posterior cerebral circulations are patent. No hemodynamically significant stenosis, aneurysm, dissection, or arteriovenous malformation is shown. IMPRESSION: 1. No occlusion, hemodynamically significant stenosis, or dissection in the major cervical arteries. 2. No occlusion, hemodynamically significant stenosis, aneurysm, dissection, or arteriovenous malformation in the major intracranial arteries. Assessment of stenosis of the internal carotid arteries is based on NASCET criteria. ACT 112: Negative or not required by law. Electronically signed by: Boone Metcalf M.D. 07/30/2022 5:18 PM ECG Data Attestation: I personally reviewed and interpreted this ECG as follows: Additional Comments: Twelve-lead EKG: Per my interpretation shows a normal sinus rhythm at a rate of 84. Right bundle branch block. No ST elevation. No PVCs. Normal QTC. MDM Narrative 77-year-old male presents with symptoms consistent with a TIA. It affected the ability to speak but not comprehend. This lasted for about 2 minutes then resolved. He has been fine since. It occurred around 3 PM today. Exam was unremarkable. Vital signs reveal hypertension. CT scans of the head and ang iograms of the head and neck did not show any concerning abnormalities. Blood work was unremarkable. EKG shows a sinus rhythm. Chest x-ray was negative for acute disease. The patient was told the results of the test. He will be seen by the hospitalist for further evaluation and care. Impression & Plan Transient cerebral ischemia Discharge Plan Visit Data Chief Complaint: Stroke/CVA Symptoms Stated Complaint: GARBLED SPEECH ED Provider: Maurilio Irene Discharge Problem: Transient cerebral ischemia Patient Disposition: Being Evaluated by Hospitalist Forms Stand Alone Forms: [facility] Prescriptions Prescriptions: No Action aspirin 325 mg Tablet,Delayed Release (Dr/Ec) 162.5 mg PO HS chlorpheniramine maleate 4 mg Tablet 4 mg PO HS multivitamin Tablet 1 tab PO DAILY omeprazole 20 mg Tablet,Delayed Release (Dr/Ec) 20 mg PO UD PRN (Reason: Acid Reflux) Ocuvite [id number]-mg Capsule 1 cap PO QAM atorvastatin 20 mg Tablet 20 mg PO DAILY lisinopril 10 mg Tablet 10 mg PO BID clopidogrel [Plavix] 75 mg tablet 75 mg PO DAILY Qty: 30 2RF Referrals Referrals: Janet Klein MD [Primary Care Provider] -
--- NOTE | 2022-07-30 18:44 | History & Physical Report ---
Date of Service July 30, 2022 Assessment & Plan (1) TIA (transient ischemic attack): Plan: New TIA symptoms. Initial imaging in the ER includes CTA head and neck and CT heaad without contrast. This is not showing acute intracranial pathology consistent with stroke. MRI wo contrast ordered overnight. He is on ASA 81mg and Lipitor 20mg daily for h/o PAD with iliac stents. Will add Plavix for additional antiplatelet therapy in setting of possible CVA. Evaluation including PT/OT/speech assessment. Monitor on telemetry for occult arrhythmia. Echo with bubble study. Appreciate neurology definitive recs. (2) HTN (hypertension): Plan: Currently hypertensive [facility] BP at goal <220/110 to allow for permissive hypertension for the next 48 hours in setting of stroke like symptoms. He was recently taken off lisinopril by his PCP on 06/03/22. Cont to monitor. Recheck of his BP in the room is 206/98 on the left and 215/100 on the right. Start norvasc and continue rechecks overnight. It is likely his elevated BP contributed to symptoms today, and he needs some control of this going home. (3) CKD (chronic kidney disease), stage III: Plan: chronic, at baseline, likely somewhat improved today (1.3) with recent discontinuation of VELAM inhibitor. (4) PAD (peripheral artery disease): Plan: chronic, stable. Cont medical management with ASA 81 and statin therapy. (5) DVT prophylaxis: Plan: Lovenox Full Code Dispo-to PCU, and possibly to home pending above evaluations. Helen Jarvis DO [facility] Hospitalist History of Present Illness Chief Complaint: CVA symptoms Primary Care Provider: Janet Klein MD 77 yo M with history of having lunch and acute garbled speech. Went to [employer] today and had vegetable soup and uruguayan muffin. [place] fine but got up to leave with his and tried to speak but had trouble speaking. Symptoms lasted about 15-20 minutes. [place] a "prismatic look" in his vision coming from the left side and possibly affecting both eyes, went away in a few seconds. He was able to get up and get his coat on and decided together with his to drive to the hospital. As they were driving over, he was able to start speaking better and the vocabulary started coming back. +word finding difficulty was the main issue. No current visual symptoms No headache today Has reported some sinus symptoms recently including nasal congestion/post nasal drip-these are chronic takes antihistamine every night and occasional afrin use No stroke symptoms in the past No chest pain no SOB No infections reported recently No diarrhea, nausea +constipation and took miralax yesterday. Allergies Allergy/AdvReac Type Severity Reaction Status Date / Time Penicillins Allergy Intermediate RASH Verified 07/30/22 18:18 Home Medications Medication Instructions Recorded Confirmed Type chlorpheniramine maleate 4 mg 2 mg PO HS 08/17/18 07/30/22 History tablet multivitamin 1 tab PO DAILY 08/17/18 07/30/22 History atorvastatin 20 mg tablet 20 mg PO DAILY 02/09/20 07/30/22 History aspirin 81 mg tablet,delayed 81 mg PO DAILY 07/30/22 07/30/22 History release calcium carbonate 200 mg calcium 400 mg PO DIRECTED PRN 07/30/22 07/30/22 History (500 mg) chewable tablet (Tums) HEARTBURN/INDIGESTION [id number] 250 mg-dha 90 1 cap PO QAM 07/30/22 07/30/22 History mg-epa 160 [id number]-[id number] capsule (Ocuvite Adult 50 Plus) Past Med/Surg History Medical History (Updated 07/30/22 @ 18:43 by Helen Jarvis DO) Acid reflux Aortoiliac occlusive disease CKD (chronic kidney disease), stage III High blood pressure ? NOT DX/HIGH READING AT ED VISIT ([facility]) FOR NOSE BLEED History of atrial fibrillation 2ND NIGHT POST OP,LUNG SURGERY/AFIB X1 EPISODE (NONE KNOWN SINCE) History of brachytherapy History of prostate cancer History of TMJ syndrome OCC CLICK OR POP NOW/NEVER LOCKED HTN (hypertension) Lumbar foraminal stenosis Lung cancer 2015/SURGERY/CHEMO Nasal bleeding AUG 17 LAST EPISODE/REASON FOR UPCOMING PROCEDURE PAD (peripheral artery disease) with bilateral iliac stents Surgical History History of bilateral cataract extraction History of endoscopy History of hernia repair History of hernia surgery LAP X2 History of intestinal surgery HX BOWEL PERFORATION History of laparoscopic cholecystectomy History of lobectomy of lung UPPER RIGHT History of vitrectomy R Family History Other FHx: heart disease Family history of diabetes mellitus Social History (Updated 07/30/22 @ 20:24 by Helen Jarvis DO) Smoking Status: Former smoker Second Hand Exposure: No; Hx Alcohol Use: No Hx Substance Use: No Preferred Language: Occitan Communication Ability: Effective Senior Research Scientist Required: No Beliefs That Will Affect Care: None marital status: Current Living Situation: Spouse Feels Safe at Home: Yes Safety Concerns: Feels Safe At This Time Assistive Devices: Denture - Upper and Glasses Review of Systems Review of Systems: All systems were reviewed and negative except as indicated in HPI above. Physical Exam Physical Exam: CONSTITUTIONAL: WNWD, vitals as above, generally well- appearing, slightly tremulous EYES: EOMI bilaterally, PERRL, normal conjunctivae, no scleral icterus ENT: external ear and nose normal, oropharynx clear NECK: trachea midline, no lymphadenopathy RESPIRATORY: clear to auscultation bilaterally, no crackles, rales or wheezes, normal respiratory effort CARDIOVASCULAR: regular rate and rhythm, S1 and 2 heard without murmurs, gallops or rubs, no JVD, no peripheral edema, no carotid bruits CHEST: inspection of chest was normal GASTROINTESTINAL: soft, nontender, ND, no guarding MUSCULOSKELETAL: strength 5/5 throughout, head is normocephalic and atraumatic SKIN: warm and dry NEUROLOGIC: patellar DTRs 2+ bilat. PERRL, EOMI, no facial palsy, no dysarthria. Touch, pain and proprioception normal. CN 2-12 grossly intact, no sensory deficit, normal cognition, normal speech, no tremor. Finger to nose no rmal. PSYCHIATRIC: alert cooperative and oriented to person, place and time. Euthymic mood, makes good eye contact, language grossly intact, recent and remote memory grossly intact. Results & Data Results & Data ([facility]) Vital Signs (Past 12 Hours) Vital Signs Temp Pulse Pulse Resp BP BP Pulse Ox 07/30/22 17:39 184/99 H 07/30/22 17:02 72 16 169/91 H 95 07/30/22 16:13 83 20 189/108 H 96 07/30/22 15:35 36.4 C L 90 18 193/105 H 99 O2 Del Method 07/30/22 17:39 07/30/22 17:02 11/16/22 16:13 07/30/22 15:35 Room Air Laboratory Results Short CBC 07/30/22 Range/Units 15:50 WBC 7.99 (4.8-10.8) K/ul Hgb 14.3 (14.0-18.0) g/dl Hct 42.2 (40.1-51.0) % Plt Count 202 (130-400) K/uL BMP 07/30/22 15:50 Sodium 140 Potassium 4.8 Chloride 106 Carbon Dioxide 30 BUN 27 H Creatinine 1.32 Glucose 163 H Calcium 9.4 Liver Function 07/30/22 Range/Units 15:50 Total Bilirubin 0.5 (0.2-1.0) mg/dl AST 23 (13-39) U/L ALT 25 (7-52) U/L Alkaline Phosphatase 71 (34-104) U/L Albumin 3.9 (3.4-5.0) gm/dl Diagnostic Findings Head CTA 07/30/22 15:52 CT angio head w con, CT angio neck with con CLINICAL HISTORY: Stroke Like Symptoms TECHNIQUE: CT angiography of the head and neck was performed following intravenous administration of iodinated contrast. Coronal and sagittal MIPS were obtained from the axial data set and were submitted for review. Automated dose lowering techniques and/or adjustment according to patient size were utilized for this examination. All measurements were calculated based on NASCET criteria. CT DOSE: 631.23 mGy.cm Comparison: None available at the time of this dictation. FINDINGS: Biapical emphysema is seen. CTA Neck: A 3 vessel aortic arch is shown. Atherosclerotic plaque is present in the aortic arch and at the origin of the great vessels. The common carotid, external carotid, cervical segments of the internal carotid arteries, and the cervical segments of the vertebral arteries are patent without hemodynamically significant stenosis. The left vertebral artery is dominant. CTA Head: The anterior and posterior cerebral circulations are patent. No hemodynamically significant stenosis, aneurysm, dissection, or arteriovenous malformation is shown. IMPRESSION: 1. No occlusion, hemodynamically significant stenosis, or dissection in the major cervical arteries. 2. No occlusion, hemodynamically significant stenosis, aneurysm, dissection, or arteriovenous malformation in the major intracranial arteries. Assessment of stenosis of the internal carotid arteries is based on NASCET criteria. ACT 112: Negative or not required by law. Electronically signed by: Boone Metcalf M.D. 07/30/2022 5:18 PM Neck CTA 07/30/22 15:52 CT angio head w con, CT angio neck with con CLINICAL HISTORY: Stroke Like Symptoms TECHNIQUE: CT angiography of the head and neck was performed following intravenous administration of iodinated contrast. Coronal and sagittal MIPS were obtained from the axial data set and were submitted for review. Automated dose lowering techniques and/or adjustment according to patient size were utilized for this examination. All measurements were calculated based on NASCET criteria. CT DOSE: 631.23 mGy.cm Comparison: None available at the time of this dictation. FINDINGS: Biapical emphysema is seen. CTA Neck: A 3 vessel aortic arch is shown. Atherosclerotic plaque is present in the aortic arch and at the origin of the great vessels. The common carotid, external carotid, cervical segments of the internal carotid arteries, and the cervical segments of the vertebral arteries are patent without hemodynamically significant stenosis. The left vertebral artery is dominant. CTA Head: The anterior and posterior cerebral circulations are patent. No hemodynamically significant stenosis, aneurysm, dissection, or arteriovenous malformation is shown. IMPRESSION: 1. No occlusion, hemodynamically significant stenosis, or dissection in the major cervical arteries. 2. No occlusion, hemodynamically significant stenosis, aneurysm, dissection, or arteriovenous malformation in the major intracranial arteries. Assessment of stenosis of the internal carotid arteries is based on NASCET criteria. ACT 112: Negative or not required by law. Electronically signed by: Boone Metcalf M.D. 07/30/2022 5:18 PM Code Status & VTE Plan VTE Prophylaxis Plan VTE Prophylaxis will be ordered: Yes
--- NOTE | 2022-07-30 18:54 | CT Scan Report ---
HEAD CT NONCONTRAST CT DOSE: 638.56 mGycm HISTORY: Speech difficulties. Stroke Alert TECHNIQUE: Multiaxial CT images of the head were performed without the use of intravenous contrast. A utomated exposure control was utilized for this study. A dose lowering technique was utilized adheri ng to the principles of ALARA. Comparison: None. Findings: The paranasal sinuses and mastoid air cells are clear. The calvarium and skull base are int act. There is no mass, hematoma, midline shift, acute infarct. White matter hypodensity is nonspecifi c but suggestive of microvascular ischemic change. The ventricles and sulci demonstrate mild age-rela tristian involutional changes. Impression: No acute intracranial abnormality. Atrophy and microvascular ischemic changes. ACT 112: Negative or not required by law. Electronically signed by: Jerry Hernández M.D. 07/30/2022 6:52 PM
[2022-07-30] MEDS ORDERED: ONDANSETRON INJ 2 MG/ML 2 ML VIAL IV PRN (19:33)
[2022-07-30] MEDS ORDERED: PHARMACIST DISCHARGE MED REC CONSULT PRN (19:33)
[2022-07-30] MEDS ORDERED: POLYETHYLENE (MIRALAX) 17 GM PACK PO PRN (19:33)
[2022-07-30] MEDS ORDERED: INFLUENZA VACCINE HIGH DOSE PF 65+ 0.7 ML SYR IM ONE (19:59)
[2022-07-30] MEDS ORDERED: amLODIPine BESYLATE 5 MG TAB PO SCH (21:00)
[2022-07-30] MEDS: CLOPIDOGREL BISULFATE 75 MG TAB PO SCH (22:12)
[2022-07-31 07:28] LABS: Basophils # (auto) 0.03 K/uL (0-0.2); Basophils % (auto) 0.3 %; Eosinophils # (auto) 0.19 K/uL (0-0.50); Eosinophils % (auto) 2.1 %; Hematocrit (blood only) 41.5 % (40.1-51.0); Hemoglobin 14.5 g/dl (14.0-18.0); Immature Granulocytes # (auto) 0.02 K/uL (0.00-0.02); Immature Granulocytes % (auto) 0.2 %; Lymphocytes # (auto) 2.68 K/uL (1.2-3.4); Mean Corpuscular Hemoglobin 30.3 pg (25.0-34.0); Mean Corpuscular Hgb Conc 34.9 g/dL (32.0-36.0); Mean Corpuscular Volume 86.8 fL (80.0-100.0); Mean Platelet Volume 9.4 fL (9.4-12.4); Monocytes # (auto) 0.81 K/uL (0.24-0.82); Monocytes % (auto) 9.1 %; Neutrophils # (auto) 5.19 K/uL (1.4-6.5); Neutrophils % (auto) 58.3 %; Platelet Count 205 K/uL (130-400); RDW Coefficient of Variation 12.4 % (11.5-14.5); RDW Standard Deviation 39.2 fL (36.4-46.3); Red Blood Count 4.78 M/uL (4.63-6.08); White Blood Count 8.92 K/ul (4.8-10.8)
[2022-07-31 08:04] LABS: BUN Creatinine Ratio 16.4 (10-20); Calcium 8.9 mg/dl (8.5-10.1); Chol HDL Ratio 2.4 (0-5); Creatinine Clr Calc Pharmacy 46.4 ml/min; Est GFR (African American) 65.4 ml/min; Est GFR (Non-African American) 56.4 ml/min; Potassium 3.7 mmol/L (3.5-5.1)
--- NOTE | 2022-07-31 08:35 | Magnetic Resonance Report ---
MR brain wo con CLINICAL HISTORY: TIA symptoms TECHNIQUE: Multiplanar and multisequence MR images of the brain were obtained without intravenous con trast. Comparison: Comparison is made to MRI brain 07/30/2022 FINDINGS: No abnormal restricted diffusion is identified. Foci of T2 and FLAIR hyperintensity are noted in the paraventricular areas consistent with chronic small vessel ischemic disease. Ex vacuo ventriculomegal y and sulcal enlargement is noted compatible with diffuse encephalomalacia. No mass is seen. There is no mass effect or midline shift. There is no evidence of acute intraparenchymal hemorrhage. No extra axial fluid collections are seen. The corpus callosum, pituitary gland, and cerebellar tonsils appea r grossly unremarkable. Flow voids of the major intracranial arterial vessels are identified. The imaged portions of the para nasal sinuses, mastoid air cells, and orbits are unremarkable. IMPRESSION: No acute abnormality and in particular no evidence of acute infarct. ACT 112: Negative or not required by law. Electronically signed by: Boone Metcalf M.D. 07/31/2022 8:32 AM
[2022-07-31] MEDS: ATORVASTATIN 20 MG TAB PO SCH (08:36)
--- NOTE | 2022-07-31 10:27 | Neurology Consultation ---
Date of Consultation July 31, 2022 Assessment & Plan (1) TIA (transient ischemic attack): Plan TIA potentially localizing to the left cerebral hemisphere, presenting with transient aphasia, resolving within a few minutes, no associated hemiparesis. Did have some associated transient vision disturbance as well. CT angiography of the head and neck negative for any significant vascular lesion. Brain MRI was negative for acute or subacute infarct but did reveal chronic microvascular ischemic disease as well as generalized atrophy. Patient does relay a history of isolated atrial fibrillation occurring in the context of lung lobectomy in 2016. It is possible that he may have had a cardioembolic TIA due to occult atrial fibrillation. He was taking daily baby aspirin and atorvastatin as an outpatient. The aspirin has been discontinued in favor of clopidogrel, I agree with this medication adjustment. He should continue with atorvastatin as prescribed. Follow-up with results of echocardiogram. I would recommend 30-day mobile cardiac outpatient telemetry to further assess for possible atrial fibrillation. If he does have evidence of atrial fibrillation would recommend switching from clopidogrel to Eliquis for secondary stroke risk reduction. No further immediate neurological recommendations. History of Present Illness Reason for Consultation: TIA Requesting Physician: Dr. Jarvis Attending Physician: Rome Garcia MD History of Present Illness The patient is a 77-year-old male with a chief complaint of sudden onset word finding difficulty that began yesterday afternoon while he was at a restaurant with his spouse. No associated difficulty with language comprehension. His symptoms were frustrating. He recalls having some associated vision disturbance with one of his eyes as well, film-like kaleidoscopic vision disturbance. No ocular pain or diplopia. Has had similar vision disturbances in the past, however. Denies experiencing any associated weakness or sensory loss of the limbs. Symptoms resolved in about 2 minutes. No associated difficulty walking. His spouse drove him to the emergency department. History notable for an episode of atrial fibrillation occurring in the context of lung surgery in 2016 for resection of a tumor. No prior history of stroke or TIA. He takes daily low-dose aspirin and atorvastatin as an outpatient. He was hypertensive at the time of presentation, 193/105. CT angiography of the head and neck unremarkable. Brain MRI negative for acute or subacute stroke. I did independently review these images and agree with the findings as described by the interpreting radiologist. Patient has not had any symptomatic recurrence in the context of his hospitalization. Allergies Allergy/AdvReac Type Severity Reaction Status Date / Time Penicillins Allergy Intermediate RASH Verified 07/30/22 18:18 Home Medications Medication Instructions Recorded Confirmed Type chlorpheniramine maleate 4 mg 2 mg PO HS 08/17/18 07/30/22 History tablet multivitamin 1 tab PO DAILY 08/17/18 07/30/22 History atorvastatin 20 mg tablet 20 mg PO DAILY 02/09/20 07/30/22 History aspirin 81 mg tablet,delayed 81 mg PO DAILY 07/30/22 07/30/22 History release calcium carbonate 200 mg calcium 400 mg PO DIRECTED PRN 07/30/22 07/30/22 History (500 mg) chewable tablet (Tums) HEARTBURN/INDIGESTION [id number] 250 mg-dha 90 1 cap PO QAM 07/30/22 07/30/22 History mg-epa 160 mv-tulx-bbbx-zeax capsule (Ocuvite Adult 50 Plus) Patient History Medical History (Updated 07/30/22 @ 18:43 by Helen Jarvis DO) Acid reflux Aortoiliac occlusive disease CKD (chronic kidney disease), stage III High blood pressure ? NOT DX/HIGH READING AT ED VISIT ([facility]) FOR NOSE BLEED History of atrial fibrillation 2ND NIGHT POST OP,LUNG SURGERY/AFIB X1 EPISODE (NONE KNOWN SINCE) History of brachytherapy History of prostate cancer History of TMJ syndrome OCC CLICK OR POP NOW/NEVER LOCKED HTN (hypertension) Lumbar foraminal stenosis Lung cancer 2015/SURGERY/CHEMO Nasal bleeding AUG 17 LAST EPISODE/REASON FOR UPCOMING PROCEDURE PAD (peripheral artery disease) with bilateral iliac stents Surgical History History of bilateral cataract extraction History of endoscopy History of hernia repair History of hernia surgery LAP X2 History of intestinal surgery HX BOWEL PERFORATION History of laparoscopic cholecystectomy History of lobectomy of lung UPPER RIGHT History of vitrectomy R Family History Other FHx: heart disease Family history of diabetes mellitus Social History (Updated 07/30/22 @ 20:24 by Helen Jarvis DO) Smoking Status: Former smoker Second Hand Exposure: No; Hx Alcohol Use: No Hx Substance Use: No Preferred Language: Botswanan Communication Ability: Effective Weight Clerk Required: No Beliefs That Will Affect Care: None marital status: Current Living Situation: Spouse Feels Safe at Home: Yes Safety Concerns: Feels Safe At This Time Assistive Devices: Denture - Upper and Glasses Review of Systems Constitutional: no fever and no chills Eyes: as per Subjective / HPI Ear, Nose, Mouth, Throat: no hearing loss Respiratory: no cough and no dyspnea Cardiovascular: no chest pain and no palpitations Gastrointestinal: no nausea and no vomiting Genitourinary: no dysuria Musculoskeletal: no myalgia Integumentary: no rash and no lesions Neurologic: as per Subjective / HPI Psychiatric: no depression and no anxiety Hematologic / Lymphatic: no easy bleeding and no easy bruising Exam (Neuro) Constitutional: well developed and well nourished; no acute distress Eyes: normal visual damon by confrontation, PERRL, normal accommodation and EOM intact bilaterally; no fundoscopic abnormality, no nystagmus and no papilledema Cardiovascular: Vessels: normal carotid upstroke; no carotid bruit Neurologic: Oriented to:: Person, Place and Time Memory: Short Term Intact and Remote Intact Attention: Span Intact and Concentration Intact Language: Naming Objects and Repeating Phrases Speech Fluency: negative Dysarthria Speech Aphasia: negative Aphasia Fund of Knowledge: Current Events, Past History and Vocabulary Cranial Nerves: Normal II (Visual damon full to confrontation, visual acuity normal), III, IV, (Pupils equal round reactive to light and accommodation, eye movements normal), V (Facial sensation intact), VII (There is no facial droop or weakness), VIII (Hearing intact), IX, X (Palate elevates to midline), XI (Shoulder shrug intact) and XII (Tongue protrudes to midline) Motor Strength: Normal Lower Extremities and Normal Upper Extremities; negative Pronator Drift Motor Tone: Normal Lower Extremities and Normal Upper Extremities Muscle Bulk/Involuntary Movements: No Involuntary Movements; negative Muscle Atrophy Sensation: Light Touch Intact, Pain/Temperature Intact, Vibration Intact and Proprioception Intact Coordination: Normal; negative Limited Balance, Dysdiadochokinesia, Finger-Nose Abnormal or Heel-Weeks Abnormal Deep Tendon Reflexes: Rt Triceps: 2+, Lt Triceps: 2+, Rt Biceps: 2+, Lt Biceps: 2+, Rt Brachioradialis: 2+, Lt Brachioradialis: 2+, Rt Patellar: 2+, Lt Patellar: 2+, Rt Ankle: 2+ and Lt Ankle: 2+ Special Tests: negative Babinski Present Gait: Normal Station and Gait Results & Data ([facility]) Vital Signs (Past 12 Hours) Vital Signs Temp Pulse Pulse Resp BP Pulse Ox O2 Del Method 07/31/22 07:35 36.6 C 97 H 19 155/92 H 93 Room Air 07/31/22 07:13 75 07/31/22 03:23 36.6 C 102 H 20 156/84 H 93 Room Air 07/31/22 00:29 75 07/30/22 23:29 36.8 C 92 H 18 190/93 H 96 Room Air Laboratory Results WBC 8.92, hemoglobin 14.5, hematocrit 41.5, platelet count 205, sodium 139, potassium 3.7, BUN 20, creatinine 1.22, glucose 101, magnesium 1.8, AST 23, ALT 25, triglycerides 85, cholesterol 136, LDL 63, VLDL 17, HDL 56, SARS-CoV-[address] angiography of the head and neck unremarkable. I independently reviewed the brain MRI, no areas of restricted diffusion, no pathologic blooming artifact, there is chronic microvascular ischemic disease on T2 and FLAIR weighted imaging. There is mild to moderate generalized atrophy with associated ventricular enlargement. An electrocardiogram reveals a sinus rhythm of 84 bpm. Coding Level of Care Code 10418 Initial Inpt Care Lvl 3 Diagnoses TIA (transient ischemic attack) G45.9
[2022-07-31] MEDS ORDERED: amLODIPine BESYLATE 5 MG TAB PO SCH (14:30)
--- NOTE | 2022-07-31 14:57 | Hospitalist Progress Note ---
Date of Service July 31, 2022 Assessment & Plan (1) TIA (transient ischemic attack): Plan: per admitting [facility] [place] with addendum: New TIA symptoms. Initial imaging in the ER includes CTA head and neck and CT heaad without contrast. This is not showing acute intracranial pathology consistent with stroke. MRI wo contrast ordered overnight. He is on ASA 81mg and Lipitor 20mg daily for h/o PAD with iliac stents. Will add Plavix for additional antiplatelet therapy in setting of possible CVA. Evaluation including PT/OT/speech assessment. Monitor on telemetry for occult arrhythmia. Echo with bubble study. Appreciate neurology definitive recs. 07/31 symptoms resolved Brain MRI: no acute CVA Echo: unrevealing Telemetry: no arrhythmia ASA changed to Plavix continue usual Atorvastatin appreciate Neuro recommendations outpatient 30 day cardiac monitoring to r/o A fib (as per patient he had an episode of a fib in 2016 post lung resection) management of HTN per below (2) HTN (hypertension): Plan: Currently hypertensive [facility] BP at goal <220/110 to allow for permissive hypertension for the next 48 hours in setting of stroke like symptoms. He was recently taken off lisinopril by his PCP on 06/03/22. Cont to monitor. Recheck of his BP in the room is 206/98 on the left and 215/100 on the right. Start norvasc and continue rechecks overnight. It is likely his elevated BP c ontributed to symptoms today, and he needs some control of this going home. 07/31 Lisinopril tapered then discontinued by PCP last May due to low bp received Amlodipine 10mg po last night BP 165/86, start Amlodipine 5mg daily monitor BP (3) CKD (chronic kidney disease), stage III: Plan: chronic, at baseline, likely somewhat improved (1.2) with recent discontinuation of VELMA inhibitor. (4) PAD (peripheral artery disease): Plan: chronic, stable. Cont medical management with Plavix now and statin therapy. (5) DVT prophylaxis: Plan: Lovenox Full Code Disposition anticipate d/c home tomorrow when medically stable plan of care discussed with patient and his in detail and at length (40 mins spent) all questions answered theya re understanding, agreeable, comfortable with the plan of care Admission and Anticipated Discharge Date Admission Date: July 30, 2022 Subjective ff up for acute CVA, etc seen resting in chair, comfortable at bedside visiting states he feels mostly back to baseline speech is back to normal no focal weakness/numbness feels somewhat "woozy" when ambulating states he only had 2 hours of sleep last night no chest pain, dyspnea, palpitations, dizziness no other symptoms Review of Systems Review of Systems: all noted and negative except for above Physical Exam Physical Exam: General- oriented x 3, not in distress, speaks in sentences with no effort or accessory muscle use Head- atraumatic Eyes- PERRL, EOMI, anicteric ENT- oropharynx clear Neck- supple, no JVD, no adenopathy, no thyromegaly; carotids +2/2, no bruits appreciated Lungs- clear to auscultation bilaterally, no rales/wheezes Heart- normal rate, regular rhythm; no murmur, no gallop, no rub appreciated Abdomen- normal bowel sounds, nondistended, soft, nontender, no masses or hepatosplenomegaly Extremities- no pretibial edema, no calf tenderness; peripheral pulses intact Neuro- alert, oriented x 3; CN 2-12 grossly intact; motor 5/5 bilaterally;sensation 100% on all extremities; no other gross focal neurologic deficits Skin- warm & dry Results & Data Results & Data ([facility]) Vital Signs (Past 12 Hours) Vital Signs Temp Pulse Pulse Resp BP Pulse Ox O2 Del Method 07/31/22 14:18 167/92 H 07/31/22 11:19 36.6 C 95 H 18 151/97 H 93 Room Air 07/31/22 07:35 36.6 C 97 H 19 155/92 H 93 Room Air 07/31/22 07:13 75 07/31/22 03:23 36.6 C 102 H 20 156/84 H 93 Room Air all noted and reviewed including below
--- NOTE | 2022-07-31 15:20 | Pharmacy Report ---
- Date of Service July 31, 2022 - Pharmacy CVA/TIA Medication Review Medications to Prevent Stroke handout has been added to the patients discharge packet. Antiplatelet * Plavix 75mg Cholesterol * Atorvastatin 20mg daily * High intensity statin deferred due to age >75 DVT Prophylaxis * SCD knee Therapeutic Anticoagulation * Neuro recommended 30-day mobile cardiac outpatient telemetry to further assess for possible atrial fibrillation. Type 2 Diabetes * Patient does not have T2DM
[2022-07-31] MEDS ORDERED: amLODIPine BESYLATE 5 MG TAB PO ONE (16:03)
[2022-07-31] MEDS: CLOPIDOGREL BISULFATE 75 MG TAB PO SCH (19:44)
[2022-07-31] MEDS: hydrALAZINE HCL 20 MG/ML VIAL IV PRN (23:26)
[2022-08-01] MEDS: hydrALAZINE HCL 20 MG/ML VIAL IV PRN ×2 (06:20→22:54)
[2022-08-01 06:26] LABS: Basophils # (auto) 0.03 K/uL (0-0.2); Basophils % (auto) 0.3 %; Eosinophils # (auto) 0.16 K/uL (0-0.50); Eosinophils % (auto) 1.6 %; Hematocrit (blood only) 44.9 % (40.1-51.0); Hemoglobin 15.3 g/dl (14.0-18.0); Immature Granulocytes # (auto) 0.04 K/uL (0.00-0.02); Immature Granulocytes % (auto) 0.4 %; Lymphocytes # (auto) 2.45 K/uL (1.2-3.4); Lymphocytes % (auto) 24.9 %; Mean Corpuscular Hemoglobin 30.5 pg (25.0-34.0); Mean Corpuscular Hgb Conc 34.1 g/dL (32.0-36.0); Mean Corpuscular Volume 89.4 fL (80.0-100.0); Mean Platelet Volume 9.4 fL (9.4-12.4); Monocytes # (auto) 0.81 K/uL (0.24-0.82); Monocytes % (auto) 8.2 %; Neutrophils # (auto) 6.34 K/uL (1.4-6.5); Neutrophils % (auto) 64.6 %; Platelet Count 225 K/uL (130-400); RDW Coefficient of Variation 12.4 % (11.5-14.5); RDW Standard Deviation 40.4 fL (36.4-46.3); Red Blood Count 5.02 M/uL (4.63-6.08); White Blood Count 9.83 K/ul (4.8-10.8)
[2022-08-01 06:46] LABS: BUN Creatinine Ratio 17.5 (10-20); Calcium 9.4 mg/dl (8.5-10.1); Creatinine Clr Calc Pharmacy 39.5 ml/min; Est GFR (Non-African American) 46.6 ml/min
[2022-08-01 07:05] LABS: Estimated Average Glucose 123 mg/dl; Hemoglobin A1C 5.9 % (4.5-5.6)
[2022-08-01] MEDS: amLODIPine BESYLATE 5 MG TAB PO SCH (08:09)
[2022-08-01] MEDS: hydrALAZINE HCL 25 MG TAB PO SCH ×2 (08:09→19:32)
[2022-08-01] MEDS: ATORVASTATIN 20 MG TAB PO SCH (08:09)
[2022-08-01] MEDS ORDERED: FLUTICASONE PROPIONATE NA SPR 16 GM BTL PRN (08:16)
[2022-08-01] MEDS: CETIRIZINE HCL 10 MG TABLET PO SCH (10:29)
[2022-08-01] MEDS: CALCIUM CARBONATE 500 MG CHEWABLE TAB PO PRN ×4 (10:34→19:39)
--- NOTE | 2022-08-01 13:00 | CT Scan Report ---
HEAD CT NONCONTRAST CT DOSE: 537.48 mGy.cm HISTORY: aphasia TECHNIQUE: Multiaxial CT images of the head were performed without the use of intravenous contrast. A utomated exposure control was utilized for this study. A dose lowering technique was utilized adheri ng to the principles of ALARA. Comparison: Brain MRI 07/30/2022. Findings: The paranasal sinuses and mastoid air cells are clear. The calvarium and skull base are int act. There is no mass, hematoma, midline shift, acute infarct. White matter hypodensity is nonspecifi c but suggestive of microvascular ischemic change. The ventricles and sulci demonstrate mild age-rela tristian involutional changes. 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 This remains unchanged. Impression: No significant change compared to the prior study. No acute intracranial abnormality. ACT 112: Negative or not required by law. Electronically signed by: Jerry Hernández M.D. 08/01/2022 12:59 PM
[2022-08-01] MEDS: ACETAMINOPHEN 325 MG TAB PO PRN ×2 (13:54→23:00)
--- NOTE | 2022-08-01 14:46 | Neurology Progress Note ---
Date of Service August 01, 2022 Assessment & Plan (1) TIA (transient ischemic attack): (2) Stroke-like symptoms: Plan: Impression: The patient had an episode of garbled speech, which lasted for few minutes, without associated neurological symptoms other than transient visual disturbance and headache. Imaging studies including brain MRI have been unremarkable. Cardiac monitoring has been showing sinus rhythm. The patient had another episode of word finding difficulty this morning, with normal repeat head CT. The patient has an episode of atrial fibrillation after having an major surgery in 2017. Recommendations: The patient will continue using Plavix and Lipitor as before. We will add aspirin 81 mg daily to use for 3 weeks. Outpatient Zio patch to investigate for proximal atrial fibrillation. Management of hypertension. Goal blood pressure is below 130/80. Management of hyperlipidemia on current dosage of Lipitor. The patient is neurologically stable and can be discharged home. Outpatient follow-up with Dr. Garza in a month. Plan As seen above. Admission and Anticipated Discharge Date Admission Date: August 01, 2022 Subjective The patient is a 77-year-old gentleman, who was brought to emergency department the day before yesterday, after the patient had short lasting garbled speech. He reports that he was in restaurant, and his speech was garbled, without additional neurological symptoms. He also noticed some visual disturbance with shrinking of peripheral vision. He was having some headache. Recently, he was suffering from cold symptoms. In emergency department, imaging studies including head CT, CT angiogram of the head and neck were unremarkable. The patient's blood pressure was elevated. Since admission, his cardiac rhythm has been showing sinus rhythm. Apparently, he had an episode of atrial fibrillation after having lobectomy surgery in 2017. Follow-up Holter monitoring was negative for A. fib. The patient has been on Plavix and Lipitor. Brain MRI did not show acute intracranial pathology. Echocardiogram was unremarkable. This morning, the patient reported some short lasting difficulty of remembering some of the names, and repeat head CT was done, which was unremarkable. He is currently asymptomatic. He is somewhat anxious and fidgety. He denies having stroke symptoms in the past. Lipid panel showed LDL lower than 70. Review of Systems Review of Systems: All systems reviewed & are unremarkable except as noted in Subjective Physical Exam Physical Exam: General Examination: Constitutional: Well developed person in no acute distress. HENT: Normal exam with inspection. CV: Hearth rhythm is regular. Neck: Supple, no carotid bruits. Lungs: Non-labored and comfortable breathing. Abdomen: Soft, non-tender, non-distended. Skin: No rash or ecchymosis. Extremities: No edema or cyanosis NEUROLOGICAL EXAMINATION: Mental Status: Alert and oriented to place, person and time. Cranial Nerves: II-XII are intact. No nystagmus. Funduscopy: Normal looking optic discs. Motor: 5/5 in all extremities without asymmetry. Tone: Normal without spasticity or rigidity. Sensory: Intact to all sensory modalities. Coordination: No dysmetria with FTN testing. Speech: Fluent. Comprehension is intact. Gait: Normal. No ataxia or abnormal walking pattern. Musculoskeletal: Normal muscle bulk, no atrophy. Results & Data ([facility]) Vital Signs (Past 12 Hours) Vital Signs Temp Pulse Pulse Resp BP Pulse Ox O2 Del Method 08/01/22 12:17 112 H 19 141/79 H 94 Room Air 08/01/22 12:11 36.5 C 114 H 19 126/74 94 Room Air 08/01/22 08:43 106 H 08/01/22 07:46 Room Air 08/01/22 08:00 36.5 C 112 H 19 144/61 H 95 Room Air 08/01/22 02:45 36.6 C 105 H 20 166/88 H 95 Room Air Laboratory Results Laboratory Results - last 24 hr 07/31/22 08/01/22 08/01/22 07:07 05:28 05:28 WBC 9.83 RBC 5.02 Hgb 15.3 Hct 44.9 MCV 89.4 MCH 30.5 MCHC 34.1 RDW Std Deviation 40.4 RDW Coeff of Erika 12.4 Plt Count 225 MPV 9.4 Immature Gran % (Auto) 0.4 Neut % (Auto) 64.6 Lymph % (Auto) 24.9 [place] % (Auto) 8.2 Eos % (Auto) 1.6 Baso % (Auto) 0.3 Neut # (Auto) 6.34 Lymph # (Auto) 2.45 [place] # (Auto) 0.81 Eos # (Auto) 0.16 Baso # (Auto) 0.03 Immature Gran # (Auto) 0.04 H Sodium 139 Potassium 4.0 Chloride 104 Carbon Dioxide 28 Anion Gap 7 BUN 25 H Creatinine 1.43 H Est Cr Clr Drug Dosing 39.5 Est GFR ( Amer) 54.0 Est GFR (Non-Af Amer) 46.6 BUN/Creatinine Ratio 17.5 Glucose 108 H Estimat Average Glucose 123 Hemoglobin A1c 5.9 H Calcium 9.[address] 07/30/22 15:[address] DOSE: 638.56 mGycm HISTORY: Speech difficulties. Stroke Alert TECHNIQUE: Multiaxial CT images of the head were performed without the use of intravenous contrast. Automated exposure control was utilized for this study. A dose lowering technique was utilized adhering to the principles of ALARA. Comparison: None. Findings: The paranasal sinuses and mastoid air cells are clear. The calvarium and skull base are intact. There is no mass, hematoma, midline shift, acute infarct. White matter hypodensity is nonspecific but suggestive of microvascular ischemic change. The ventricles and sulci demonstrate mild age-related involutional changes. Impression: No acute intracranial abnormality. Atrophy and microvascular ischemic changes. ACT 112: Negative or not required by law. Electronically signed by: Jerry Hernández M.D. 07/30/2022 6:52 PM Head CTA 07/30/22 15:52 CT angio head w con, CT angio neck with con CLINICAL HISTORY: Stroke Like Symptoms TECHNIQUE: CT angiography of the head and neck was performed following intravenous administration of iodinated contrast. Coronal and sagittal MIPS were obtained from the axial data set and were submitted for review. Automated dose lowering techniques and/or adjustment according to patient size were utilized for this examination. All measurements were calculated based on NASCET criteria. CT DOSE: 631.23 mGy.cm Comparison: None available at the time of this dictation. FINDINGS: Biapical emphysema is seen. CTA Neck: A 3 vessel aortic arch is shown. Atherosclerotic plaque is present in the aortic arch and at the origin of the great vessels. The common carotid, external carotid, cervical segments of the internal carotid arteries, and the cervical segments of the vertebral arteries are patent without hemodynamically significant stenosis. The left vertebral artery is dominant. CTA Head: The anterior and posterior cerebral circulations are patent. No hemodynamically significant stenosis, aneurysm, dissection, or arteriovenous malformation is shown. IMPRESSION: 1. No occlusion, hemodynamically significant stenosis, or dissection in the major cervical arteries. 2. No occlusion, hemodynamically significant stenosis, aneurysm, dissection, or arteriovenous malformation in the major intracranial arteries. Assessment of stenosis of the internal carotid arteries is based on NASCET criteria. ACT 112: Negative or not required by law. Electronically signed by: Boone Metcalf M.D. 07/30/2022 5:18 PM Neck CTA 07/30/22 15:52 CT angio head w con, CT angio neck with con CLINICAL HISTORY: Stroke Like Symptoms TECHNIQUE: CT angiography of the head and neck was performed following intravenous administration of iodinated contrast. Coronal and sagittal MIPS were obtained from the axial data set and were submitted for review. Automated dose lowering techniques and/or adjustment according to patient size were utilized for this examination. All measurements were calculated based on NASCET criteria. CT DOSE: 631.23 mGy.cm Comparison: None available at the time of this dictation. FINDINGS: Biapical emphysema is seen. CTA Neck: A 3 vessel aortic arch is shown. Atherosclerotic plaque is present in the aortic arch and at the origin of the great vessels. The common carotid, external carotid, cervical segments of the internal carotid arteries, and the cervical segments of the vertebral arteries are patent without hemodynamically significant stenosis. The left vertebral artery is dominant. CTA Head: The anterior and posterior cerebral circulations are patent. No hemodynamically significant stenosis, aneurysm, dissection, or arteriovenous malformation is shown. IMPRESSION: 1. No occlusion, hemodynamically significant stenosis, or dissection in the major cervical arteries. 2. No occlusion, hemodynamically significant stenosis, aneurysm, dissection, or arteriovenous malformation in the major intracranial arteries. Assessment of stenosis of the internal carotid arteries is based on NASCET criteria. ACT 112: Negative or not required by law. Electronically signed by: Boone Metcalf M.D. 07/30/2022 5:18 PM Brain MRI 07/30/22 19:33 MR brain wo con CLINICAL HISTORY: TIA symptoms TECHNIQUE: Multiplanar and multisequence MR images of the brain were obtained without intravenous contrast. Comparison: Comparison is made to MRI brain 07/30/2022 FINDINGS: No abnormal restricted diffusion is identified. Foci of T2 and FLAIR hyperintensity are noted in the paraventricular areas consistent with chronic small vessel ischemic disease. Ex vacuo ventriculomegaly and sulcal enlargement is noted compatible with diffuse encephalomalacia. No mass is seen. There is no mass effect or midline shift. There is no evidence of acute intraparenchymal hemorrhage. No extra axial fluid collections are seen. The corpus callosum, pituitary gland, and cerebellar tonsils appear grossly unremarkable. Flow voids of the major intracranial arterial vessels are identified. The imaged portions of the paranasal sinuses, mastoid air cells, and orbits are unremarkable. IMPRESSION: No acute abnormality and in particular no evidence of acute infarct. ACT 112: Negative or not required by law. Electronically signed by: Boone Metcalf M.D. 07/31/2022 8:[address] 08/01/22 12:[address] DOSE: 537.48 mGy.cm HISTORY: aphasia TECHNIQUE: Multiaxial CT images of the head were performed without the use of intravenous contrast. Automated exposure control was utilized for this study. A dose lowering technique was utilized adhering to the principles of ALARA. Comparison: Brain MRI 07/30/2022. Findings: The paranasal sinuses and mastoid air cells are clear. The calvarium and skull base are intact. There is no mass, hematoma, midline shift, acute infarct. White matter hypodensity is nonspecific but suggestive of microvascular ischemic change. The ventricles and sulci demonstrate mild age-related involutional changes. 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 This remains unchanged. Impression: No significant change compared to the prior study. No acute intracranial abnormality. ACT 112: Negative or not required by law. Electronically signed by: Jerry Hernández M.D. 08/01/2022 12:59 PM
--- NOTE | 2022-08-01 15:54 | Hospitalist Progress Note ---
Date of Service August 01, 2022 Assessment & Plan (1) TIA (transient ischemic attack): Plan: per admitting [facility] [place] with addendum: New TIA symptoms. Initial imaging in the ER includes CTA head and neck and CT heaad without contrast. This is not showing acute intracranial pathology consistent with stroke. MRI wo contrast ordered overnight. He is on ASA 81mg and Lipitor 20mg daily for h/o PAD with iliac stents. Will add Plavix for additional antiplatelet therapy in setting of possible CVA. Evaluation including PT/OT/speech assessment. Monitor on telemetry for occult arrhythmia. Echo with bubble study. Appreciate neurology definitive recs. 07/31 symptoms resolved Brain MRI: no acute CVA Echo: unrevealing Telemetry: no arrhythmia ASA changed to Plavix continue usual Atorvastatin appreciate Neuro recommendations outpatient 30 day cardiac monitoring to r/o A fib (as per patient he had an episode of a fib in 2016 post lung resection) management of HTN per below 08/01 Had another episode of expressive aphasia around 12 noon, lasting [address] head: Unremarkable Discussed with neurologist Dr. Puente Recommend to continue with aspirin along with additional Plavix We will continue to monitor blood pressure Hopefully will be discharged home (2) HTN (hypertension): Plan: Currently hypertensive wt BP at goal <220/110 to allow for permissive hypertension for the next 48 hours in setting of stroke like symptoms. He was recently taken off lisinopril by his PCP on 06/03/22. Cont to monitor. Recheck of his BP in the room is 206/98 on the left and 215/100 on the right. Start norvasc and continue rechecks overnight. It is likely his elevated BP contributed to symptoms today, and he needs some control of this going home. 07/31 Lisinopril tapered then discontinued by PCP last May due to low bp received Amlodipine 10mg po last night BP 165/86, start Amlodipine 5mg daily monitor BP 08/01 Blood pressure improving, currently 144/66 Continue amlodipine 10 mg p.o. daily in the morning Additional hydralazine 25 mg p.o. twice daily Monitor closely (3) CKD (chronic kidney disease), stage III: Plan: chronic, at baseline, likely somewhat improved (1.2) with recent discontinuation of VELMA inhibitor. (4) PAD (peripheral artery disease): Plan: chronic, stable. Cont medical management with Plavix now and statin therapy. (5) DVT prophylaxis: Plan: Lovenox Full Code Disposition anticipate d/c home tomorrow when medically stable plan of care discussed with patient and his in detail and at length (40 mins spent) all questions answered theya re understanding, agreeable, comfortable with the plan of care Admission and Anticipated Discharge Date Admission Date: August 01, 2022 Subjective Follow-up for TIA, etc. Patient noted to have another episode of word finding around 12 noon Lasted for around 15 minutes Seen at bedside, patient speech already improving Stat CT head ordered Discussed with neurologist Patient reassessed after arriving from CAT scan of his head Awake, alert, oriented x3 Speech is back to baseline No focal neurologic deficits Reports mild frontal headache Nasal drainage improving no chest pain, dyspnea, palpitations, dizziness No arrhythmias noted on telemetry monitoring No Other symptoms Review of Systems Review of Systems: all noted and negative except for above Physical Exam Physical Exam: General- oriented x 3, not in distress, speaks in sentences with no effort or accessory muscle use Eyes- anicteric Neck- no JVD Lungs- clear breath sounds bilaterally, no rales/wheezes Heart- normal rate, regular rhythm; no murmurs Abdomen- normal bowel sounds, nondistended, soft, nontender Extremities- no pretibial edema, no calf tenderness Neuro- alert, oriented x 3; no gross focal neurologic deficits Skin- warm & dry Results & Data Results & Data ([facility]) Vital Signs (Past 12 Hours) Vital Signs Temp Pulse Pulse Resp BP Pulse Ox O2 Del Method 08/01/22 15:49 36.8 C 106 H 16 148/74 H 95 Room Air 08/01/22 12:17 112 H 19 141/79 H 94 Room Air 08/01/22 12:11 36.5 C 114 H 19 126/74 94 Room Air 08/01/22 08:43 106 H 08/01/22 07:46 Room Air 08/01/22 08:00 36.5 C 112 H 19 144/61 H 95 Room Air all noted and reviewed including below
[2022-08-01] MEDS: ASPIRIN 81 MG ECTAB PO SCH (17:19)
[2022-08-01] MEDS: CLOPIDOGREL BISULFATE 75 MG TAB PO SCH (19:32)
[2022-08-02 07:02] LABS: Basophils # (auto) 0.02 K/uL (0-0.2); Basophils % (auto) 0.2 %; Eosinophils # (auto) 0.08 K/uL (0-0.50); Eosinophils % (auto) 0.8 %; Hemoglobin 14.5 g/dl (14.0-18.0); Immature Granulocytes # (auto) 0.03 K/uL (0.00-0.02); Immature Granulocytes % (auto) 0.3 %; Lymphocytes # (auto) 2.48 K/uL (1.2-3.4); Lymphocytes % (auto) 24.6 %; Mean Corpuscular Hemoglobin 30.5 pg (25.0-34.0); Mean Corpuscular Hgb Conc 34.5 g/dL (32.0-36.0); Mean Corpuscular Volume 88.2 fL (80.0-100.0); Mean Platelet Volume 9.4 fL (9.4-12.4); Monocytes # (auto) 0.83 K/uL (0.24-0.82); Monocytes % (auto) 8.2 %; Neutrophils # (auto) 6.65 K/uL (1.4-6.5); Neutrophils % (auto) 65.9 %; Platelet Count 219 K/uL (130-400); RDW Coefficient of Variation 12.5 % (11.5-14.5); RDW Standard Deviation 40.6 fL (36.4-46.3); Red Blood Count 4.76 M/uL (4.63-6.08); White Blood Count 10.09 K/ul (4.8-10.8)
[2022-08-02 07:23] LABS: Calcium 9.5 mg/dl (8.5-10.1); Creatinine Clr Calc Pharmacy 39.5 ml/min; Est GFR (African American) 56.4 ml/min; Est GFR (Non-African American) 48.6 ml/min; Potassium 3.8 mmol/L (3.5-5.1)
[2022-08-02] MEDS: ACETAMINOPHEN 325 MG TAB PO PRN (07:52)
[2022-08-02] MEDS: CALCIUM CARBONATE 500 MG CHEWABLE TAB PO PRN (07:53)
[2022-08-02] MEDS: hydrALAZINE HCL 25 MG TAB PO SCH (07:53)
[2022-08-02] MEDS: CETIRIZINE HCL 10 MG TABLET PO SCH (07:54)
[2022-08-02] MEDS: amLODIPine BESYLATE 5 MG TAB PO SCH (07:54)
[2022-08-02] MEDS: ASPIRIN 81 MG ECTAB PO SCH (07:54)
[2022-08-02] MEDS: ATORVASTATIN 20 MG TAB PO SCH (07:54)
--- NOTE | 2022-08-02 11:48 | Hospitalist Progress Note ---
Date of Service August 02, 2022 Assessment & Plan (1) TIA (transient ischemic attack): Plan: per admitting [facility] [place] notes with addendum: New TIA symptoms. Initial imaging in the ER includes CTA head and neck and CT heaad without contrast. This is not showing acute intracranial pathology consistent with stroke. MRI wo contrast ordered overnight. He is on ASA 81mg and Lipitor 20mg daily for h/o PAD with iliac stents. Will add Plavix for additional antiplatelet therapy in setting of possible CVA. Evaluation including PT/OT/speech assessment. Monitor on telemetry for occult arrhythmia. Echo with bubble study. Appreciate neurology definitive recs. 07/31 symptoms resolved Brain MRI: no acute CVA Echo: unrevealing Telemetry: no arrhythmia ASA changed to Plavix continue usual Atorvastatin appreciate Neuro recommendations outpatient 30 day cardiac monitoring to r/o A fib (as per patient he had an episode of a fib in 2016 post lung resection) management of HTN per below 08/01 Had another episode of expressive aphasia around 12 noon, lasting [address] head: Unremarkable Discussed with neurologist Dr. Puente Recommend to continue with aspirin along with additional Plavix We will continue to monitor blood pressure Hopefully will be discharged home 08/02 no recurrence of aphasia BP now improved stable for discharge: Aspirin + Plavix BP meds per below continue Atorvastatin outpatient 30 day Zio patch monitor Neuro ff up in 2-3 weeks (2) HTN (hypertension): Plan: Currently hypertensive wt BP at goal <220/110 to allow for permissive hypertension for the next 48 hours in setting of stroke like symptoms. He was recently taken off lisinopril by his PCP on 06/03/22. Cont to monitor. Recheck of his BP in the room is 206/98 on the left and 215/100 on the right. Start norvasc and continue rechecks overnight. It is likely his elevated BP contributed to symptoms today, and he needs some control of this going home. 07/31 Lisinopril tapered then discontinued by PCP last May due to low bp received Amlodipine 10mg po last night BP 165/86, start Amlodipine 5mg daily monitor BP 08/01 Blood pressure improving, currently 144/66 Continue amlodipine 10 mg p.o. daily in the morning Additional hydralazine 25 mg p.o. twice daily Monitor closely 08/02 BP improving continue Amlodipine 10mg daily and Hydralazine 25mg po BID close outpatient monitoring (3) CKD (chronic kidney disease), stage III: Plan: chronic, at baseline, likely somewhat improved (1.2) with recent discontinuation of VELMA inhibitor. (4) PAD (peripheral artery disease): Plan: chronic, stable. Cont medical management with Plavix now and statin therapy. (5) DVT prophylaxis: Plan: Lovenox Full Code Disposition anticipate d/c home tomorrow when medically stable plan of care discussed with patient and his in detail and at length (40 mins spent) all questions answered they are understanding, agreeable, comfortable with the plan of care Admission and Anticipated Discharge Date Admission Date: August 01, 2022 Subjective ff up for TIA, etc seen resting in bed, comfortable sitting up, in good spirits states he feels fine overall no recurrence of aphasia no focal weakness or numbness no chest pain, dyspnea, palpitations, dizziness no other symptoms Review of Systems Review of Systems: all noted and negative except for above Physical Exam Physical Exam: General- oriented x 3, not in distress, speaks in sentences with no effort or accessory muscle use Eyes- anicteric Neck- no JVD Lungs- clear breath sounds bilaterally, no rales/wheezes Heart- normal rate, regular rhythm; no murmurs Abdomen- normal bowel sounds, nondistended, soft, nontender Extremities- no pretibial edema, no calf tenderness Neuro- alert, oriented x 3; no gross focal neurologic deficits Skin- warm & dry Results & Data Results & Data ([facility]) Vital Signs (Past 12 Hours) Vital Signs Temp Pulse Resp BP Pulse Ox O2 Del Method 08/02/22 07:28 37.0 C 100 H 17 149/88 H 95 Room Air 08/02/22 02:57 36.8 C 119 H 18 139/63 97 Room Air all noted and reviewed including below
--- NOTE | 2022-08-02 12:17 | Discharge Summary ---
Discharge Summary Date of Service August 02, 2022 Notes For Next Care Provider Patient needs 30-day Zio patch monitor to rule out underlying atrial fibrillation. Medication Changes From Visit New medications: Plavix 75 mg p.o. daily Amlodipine 10 mg p.o. daily Hydralazine 25 mg p.o. twice daily Flonase x1 week Continued medications: Usual aspirin 81 mg for 3 weeks then stop Admission HPI Per Admitting Provider 77 yo M with history of having lunch and acute garbled speech. Went to [employer] today and had vegetable soup and irish muffin. [place] fine but got up to leave with his and tried to speak but had trouble speaking. Symptoms lasted about 15-20 minutes. [place] a "prismatic look" in his vision coming from the left side and possibly affecting both eyes, went away in a few seconds. He was able to get up and get his coat on and decided together with his to drive to the hospital. As they were driving over, he was able to start speaking better and the vocabulary started coming back. +word finding difficulty was the main issue. No current visual symptoms No headache today Has reported some sinus symptoms recently including nasal congestion/post nasal drip-these are chronic takes antihistamine every night and occasional afrin use No stroke symptoms in the past No chest pain no SOB No infections reported recently No diarrhea, nausea +constipation and took miralax yesterday. Admission Exam Per Admitting Provider CONSTITUTIONAL: [facility]NWD, vitals as above, generally well-appearing, slightly tremulous EYES: EOMI bilaterally, PERRL, normal conjunctivae, no scleral icterus ENT: external ear and nose normal, oropharynx clear NECK: trachea midline, no lymphadenopathy RESPIRATORY: clear to auscultation bilaterally, no crackles, rales or wheezes, normal respiratory effort CARDIOVASCULAR: regular rate and rhythm, S1 and 2 heard without murmurs, gallops or rubs, no JVD, no peripheral edema, no carotid bruits CHEST: inspection of chest was normal GASTROINTESTINAL: soft, nontender, ND, no guarding MUSCULOSKELETAL: strength 5/5 throughout, head is normocephalic and atraumatic SKIN: warm and dry NEUROLOGIC: patellar DTRs 2+ bilat. PERRL, EOMI, no facial palsy, no dysarthria. Touch, pain and proprioception normal. CN 2-12 grossly intact, no sensory deficit, normal cognition, normal speech, no tremor. Finger to nose normal. PSYCHIATRIC: alert cooperative and oriented to person, place and time. Eu thymic mood, makes good eye contact, language grossly intact, recent and remote memory grossly intact. Principal Dx & Hospital Course #1 = Principal Diagnosis (1) TIA (transient ischemic attack): per admitting [facility] notes with addendum: New TIA symptoms. Initial imaging in the ER includes CTA head and neck and CT heaad without contrast. This is not showing acute intracranial pathology consistent with stroke. MRI wo contrast ordered overnight. He is on ASA 81mg and Lipitor 20mg daily for h/o PAD with iliac stents. Will add Plavix for additional antiplatelet therapy in setting of possible CVA. Evaluation including PT/OT/speech assessment. Monitor on telemetry for occult arrhythmia. Echo with bubble study. Appreciate neurology definitive recs. Brain MRI: no acute CVA Echo: EF 60 to 65%, no ASD, no significant valvular pathology Telemetry: no arrhythmia 07/31 symptoms resolved 08/01 Had another episode of expressive aphasia around 12 noon, lasting [address] head: Unremarkable Discussed with neurologist Dr. Puente Recommend to continue with aspirin along with additional Plavix 08/02 no recurrence of aphasia BP now improved stable for discharge: Usual aspirin 81 mg p.o. daily x3 weeks then stop Plavix 75 mg p.o. daily BP meds per below continue usual atorvastatin outpatient 30 day Zio patch monitor Neuro ff up with Dr. Markel Garza in 2-3 weeks (2) HTN (hypertension): Currently hypertensive [facility] BP at goal <220/110 to allow for permissive hypertension for the next 48 hours in setting of stroke like symptoms. He was recently taken off lisinopril by his PCP on 06/03/22. Cont to monitor. Recheck of his BP in the room is 206/98 on the left and 215/100 on the right. Start norvasc and continue rechecks overnight. It is likely his elevated BP contributed to symptoms today, and he needs some control of this going home. Lisinopril tapered then discontinued by PCP last May due to low bp 08/02 BP improving continue Amlodipine 10mg daily and Hydralazine 25mg po BID close outpatient monitoring (3) CKD (chronic kidney disease), stage III: chronic, at baseline, likely somewhat improved (1.2) with recent discontinuation of VELMA inhibitor. (4) PAD (peripheral artery disease): chronic, stable. Cont medical management with aspirin, Plavix and statin therapy. (5) DVT prophylaxis: Lovenox given plan of care discussed with patient and his in detail and at length (40 mins spent) all questions answered they are understanding, agreeable, comfortable with the plan of care Discharge Exam General- oriented x 3, not in distress, speaks in sentences with no effort or accessory muscle use Eyes- anicteric Neck- no JVD Lungs- clear breath sounds bilaterally, no rales/wheezes Heart- normal rate, regular rhythm; no murmurs Abdomen- normal bowel sounds, nondistended, soft, nontender Extremities- no pretibial edema, no calf tenderness Neuro- alert, oriented x 3; no gross focal neurologic deficits Skin- warm & dry Updated Medication List Medication Instructions Recorded Confirmed Type chlorpheniramine maleate 4 mg 2 mg PO HS 08/17/18 07/30/22 History tablet multivitamin 1 tab PO DAILY 08/17/18 07/30/22 History atorvastatin 20 mg tablet 20 mg PO DAILY 02/09/20 07/30/22 History aspirin 81 mg tablet,delayed 81 mg PO DAILY 07/30/22 07/30/22 History release calcium carbonate 200 mg calcium 400 mg PO DIRECTED PRN 07/30/22 07/30/22 History (500 mg) chewable tablet (Tums) HEARTBURN/INDIGESTION [id number] 250 mg-dha 90 1 cap PO QAM 07/30/22 07/30/22 History mg-epa 160 [id number] capsule (Ocuvite Adult 50 Plus) amlodipine 5 mg tablet (Norvasc) 10 mg PO QAM 30 days #60 tabs 08/02/22 Rx clopidogrel 75 mg tablet 75 mg PO HS 30 days #30 tabs 08/02/22 Rx fluticasone propionate 50 1 spray NA BID 7 days #16 grams 08/02/22 Rx mcg/actuation nasal spray,suspension hydralazine 25 mg tablet 25 mg PO BID 30 days #60 tabs 08/02/22 Rx Hospital Stay Data Consultations 07/30/22 18:25 ED Decision to Admit Stat 07/30/22 19:33 Consult Neurology Routine Diagnostic Imagining Performed Head CTA 07/30/22 15:52 CT angio head w con, CT angio neck with con CLINICAL HISTORY: Stroke Like Symptoms TECHNIQUE: CT angiography of the head and neck was performed following intravenous administration of iodinated contrast. Coronal and sagittal MIPS were obtained from the axial data set and were submitted for review. Automated dose lowering techniques and/or adjustment according to patient size were utilized for this examination. All measurements were calculated based on NASCET criteria. CT DOSE: 631.23 mGy.cm Comparison: None available at the time of this dictation. FINDINGS: Biapical emphysema is seen. CTA Neck: A 3 vessel aortic arch is shown. Atherosclerotic plaque is present in the aortic arch and at the origin of the great vessels. The common carotid, external carotid, cervical segments of the internal carotid arteries, and the cervical segments of the vertebral arteries are patent without hemodynamically significant stenosis. The left vertebral artery is dominant. CTA Head: The anterior and posterior cerebral circulations are patent. No hemodynamically significant stenosis, aneurysm, dissection, or arteriovenous malformation is shown. IMPRESSION: 1. No occlusion, hemodynamically significant stenosis, or dissection in the major cervical arteries. 2. No occlusion, hemodynamically significant stenosis, aneurysm, dissection, or arteriovenous malformation in the major intracranial arteries. Assessment of stenosis of the internal carotid arteries is based on NASCET criteria. ACT 112: Negative or not required by law. Electronically signed by: Boone Metcalf M.D. 07/30/2022 5:18 PM Neck CTA 07/30/22 15:52 CT angio head w con, CT angio neck with con CLINICAL HISTORY: Stroke Like Symptoms TECHNIQUE: CT angiography of the head and neck was performed following intravenous administration of iodinated contrast. Coronal and sagittal MIPS were obtained from the axial data set and were submitted for review. Automated dose lowering techniques and/or adjustment according to patient size were utilized for this examination. All measurements were calculated based on NASCET criteria. CT DOSE: 631.23 mGy.cm Comparison: None available at the time of this dictation. FINDINGS: Biapical emphysema is seen. CTA Neck: A 3 vessel aortic arch is shown. Atherosclerotic plaque is present in the aortic arch and at the origin of the great vessels. The common carotid, external carotid, cervical segments of the internal carotid arteries, and the cervical segments of the vertebral arteries are patent without hemodynamically significant stenosis. The left vertebral artery is dominant. CTA Head: The anterior and posterior cerebral circulations are patent. No hemodynamically significant stenosis, aneurysm, dissection, or arteriovenous malformation is shown. IMPRESSION: 1. No occlusion, hemodynamically significant stenosis, or dissection in the major cervical arteries. 2. No occlusion, hemodynamically significant stenosis, aneurysm, dissection, or arteriovenous malformation in the major intracranial arteries. Assessment of stenosis of the internal carotid arteries is based on NASCET criteria. ACT 112: Negative or not required by law. Electronically signed by: Boone Metcalf M.D. 07/30/2022 5:18 PM Brain MRI 07/30/22 19:33 MR brain wo con CLINICAL HISTORY: TIA symptoms TECHNIQUE: Multiplanar and multisequence MR images of the brain were obtained without intravenous contrast. Comparison: Comparison is made to MRI brain 07/30/2022 FINDINGS: No abnormal restricted diffusion is identified. Foci of T2 and FLAIR hyperintensity are noted in the paraventricular areas consistent with chronic small vessel ischemic disease. Ex vacuo ventriculomegaly and sulcal enlargement is noted compatible with diffuse encephalomalacia. No mass is seen. There is no mass effect or midline shift. There is no evidence of acute intraparenchymal hemorrhage. No extra axial fluid collections are seen. The corpus callosum, pituitary gland, and cerebellar tonsils appear grossly unremarkable. Flow voids of the major intracranial arterial vessels are identified. The imaged portions of the paranasal sinuses, mastoid air cells, and orbits are unremarkable. IMPRESSION: No acute abnormality and in particular no evidence of acute infarct. ACT 112: Negative or not required by law. Electronically signed by: Boone Metcalf M.D. 07/31/2022 8:[address] 08/01/22 12:[address] DOSE: 537.48 mGy.cm HISTORY: aphasia TECHNIQUE: Multiaxial CT images of the head were performed without the use of intravenous contrast. Automated exposure control was utilized for this study. A dose lowering technique was utilized adhering to the principles of ALARA. Comparison: Brain MRI 07/30/2022. Findings: The paranasal sinuses and mastoid air cells are clear. The calvarium and skull base are intact. There is no mass, hematoma, midline shift, acute infarct. White matter hypodensity is nonspecific but suggestive of microvascular ischemic change. The ventricles and sulci demonstrate mild age-related involutional changes. 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 This remains unchanged. Impression: No significant change compared to the prior study. No acute intracranial abnormality. ACT 112: Negative or not required by law. Electronically signed by: Jerry Hernández M.D. 08/01/2022 12:59 PM Pending Results Patient Have Any Pending Studies at Discharge: Yes Discharge Instructions Given to Patient (Per Discharging Provider) PLEASE REFER TO YOUR NEW MEDICATION LIST AND FOLLOW INSTRUCTIONS CAREFULLY. YOUR NEW MEDICATIONS INCLUDE: Plavix- for stroke prevention Amlodipine, hydralazine-for blood pressure control Flonase-for allergic rhinitis Take your usual aspirin for 3 weeks then stop. PLEASE CALL YOUR PRIMARY CARE PHYSICIAN OR RETURN TO THE ER IF WITH WORSENING OF SYMPTOMS, INCLUDING Weakness, dizziness, worsening of nasal drainage/congestion, fevers or chills, headaches, etc. FOLLOW UP WITH PRIMARY CARE PHYSICIAN in 1 week. The clinic will be calling you soon for the appointment. Follow-up with neurologist Dr. Markel Garza in 2 to 3 weeks. Please call his office for an appointment. Contact information outlined above. You also need to have a 30-day Zio patch lunchroom monitor. The primary care physician can help assist you with this. WHO TO CALL AND WHEN: Medical Emergencies: Call 911 immediately if you experience any of the following warning signs and symptoms of Stroke: Sudden numbness or weakness of the face, arm or leg, especially on one side of the body Sudden confusion, trouble speaking or understanding Sudden trouble seeing in one or both eyes Sudden trouble walking, dizziness, loss of balance or coordination Sudden severe headache with no cause Do not delay calling 911 if you experience any warning signs or symptoms of a stroke. Delay in seeking medical attention may affect what treatments can be given to you. Risk Factors for Stroke: You can reduce your chances of stroke by working with your medical provider to adopt a healthy lifestyle. Some specific ways to lower your chance of stroke are: If you are a smoker, now is the time to stop smoking cigarettes If you are diabetic, improve the control of your blood sugars Avoid excessive amounts of alcohol Control high blood pressure Lose weight if you are overweight Be sure to lead an active lifestyle Eat a healthy diet low in salt, cholesterol and fat You should know about other risk factors for stroke that you are unable to control. These include: Age 55 years or older Male gender Certain racial groups: , or / Family History of Stroke, Mini stroke or Heart Attack Sickle Cell Disease Follow Up: It is important for you to keep your follow up appointments with your medical provider. Total Time Total Time Spent Total Time Spent (In Minutes): >30 minutes
== END 2022-08-02 01:17 | disposition home or self-care (01) ==
LOC: 2S 15:28 → ED 15:28 → SUATTDRO 18:29 → 2S 19:16